=== PATIENT | female | born 1950 | race Caucasian/White ===

== ENCOUNTER → 2016-07-12 | Outpatient (CLI) | payer MEDICARE | END | disposition home or self-care (01) | LOC: US 02-19 11:00 | DX: I12.9 Hypertensive chronic kidney disease with stage 1 through stage 4 chronic kidney disease, or unspecified chronic kidney disease (principal); N18.3 Chronic kidney disease, stage 3 (moderate); E55.9 Vitamin D deficiency, unspecified; E21.1 Secondary hyperparathyroidism, not elsewhere classified; I73.9 Peripheral vascular disease, unspecified; G47.33 Obstructive sleep apnea (adult) (pediatric); N28.1 Cyst of kidney, acquired ==

== ENCOUNTER → 2016-08-02 | Outpatient (CLI) | payer MEDICARE ==
[2016-08-02 13:24] LABS: BASO % 0.4 % (0.0-1.0); EOS # 0.1 10*3/uL (0.0-0.4); EOS % 1.7 % (1.0-4.0); HEMATOCRIT 38.8 % (37.0-47.0); HEMOGLOBIN 11.9 g/dl (12.0-16.0); LYMPH # 1.5 10*3/uL (1.3-4.4); LYMPH % 22.1 % (27.0-41.0); MEAN CELL VOLUME 98.5 fl (81.0-99.0); MEAN CORPUSCULAR HGB 30.2 pg (27.0-31.0); MEAN CORPUSCULAR HGB CONC 30.7 g/dl (33.0-37.0); MEAN PLATELET VOLUME 10.5 fl (9.6-12.3); MONO # 0.4 10*3/uL (0.1-1.0); MONO % 5.8 % (3.0-9.0); NEUT # 4.8 10*3/uL (2.3-7.9); NEUT % 69.9 % (47.0-73.0); PLATELET COUNT AUTOMATED 211 10*3/uL (130-400); RED BLOOD COUNT 3.94 10*6/uL (4.10-5.10); RED CELL DISTRI WIDTH 15.8 % (0-14.5); WHITE BLOOD COUNT 6.9 10*3/uL (4.8-10.8)
[2016-08-02 13:52] LABS: ALBUMIN 3.1 gm/dl (3.1-4.5); POTASSIUM 3.7 mmol/L (3.5-5.1)
[2016-08-02 14:12] LABS: VITAMIN D, 25-HYDROXY 42.5 ng/mL (30-100)
[2016-08-02 14:13] LABS: FERRITIN 113.1 ng/mL (10.0-291.0)
== END | disposition home or self-care (01) ==
LOC: LAB 13:00
PROVIDERS: Internal Medicine Nephrology
DX: I12.9 Hypertensive chronic kidney disease with stage 1 through stage 4 chronic kidney disease, or unspecified chronic kidney disease (principal); N18.3 Chronic kidney disease, stage 3 (moderate); E55.9 Vitamin D deficiency, unspecified; E21.1 Secondary hyperparathyroidism, not elsewhere classified; I73.9 Peripheral vascular disease, unspecified; G47.33 Obstructive sleep apnea (adult) (pediatric); D63.1 Anemia in chronic kidney disease

== ENCOUNTER → 2017-02-01 | Outpatient (CLI) | payer MEDICARE ==
[2017-02-01 12:10] LABS: PHOSPHOROUS 3.6 mg/dL (2.5-4.9)
[2017-02-01 12:15] LABS: THYROID STIM HORMONE (HS) 2.66 uIU/ml (0.358-4.75)
== END | disposition home or self-care (01) ==
LOC: LAB 11:12
PROVIDERS: Internal Medicine Endocrinology, Diabetes & Metabolism
DX: E05.20 Thyrotoxicosis with toxic multinodular goiter without thyrotoxic crisis or storm (principal); E55.9 Vitamin D deficiency, unspecified; E21.1 Secondary hyperparathyroidism, not elsewhere classified

== ENCOUNTER → 2017-03-14 | Outpatient (CLI) | payer MEDICARE ==
[2017-03-14 13:54] LABS: URINE CREATININE RANDOM 47.5 mg/dL
[2017-03-14 14:02] LABS: BASO % 0.4 % (0.0-1.0); EOS # 0.2 10*3/uL (0.0-0.4); EOS % 2.2 % (1.0-4.0); HEMATOCRIT 38.5 % (37.0-47.0); LYMPH # 1.6 10*3/uL (1.3-4.4); LYMPH % 22.4 % (27.0-41.0); MEAN CELL VOLUME 94.6 fl (81.0-99.0); MEAN CORPUSCULAR HGB 29.5 pg (27.0-31.0); MEAN CORPUSCULAR HGB CONC 31.2 g/dl (33.0-37.0); MEAN PLATELET VOLUME 11.3 fl (9.6-12.3); MONO # 0.5 10*3/uL (0.1-1.0); MONO % 6.2 % (3.0-9.0); PLATELET COUNT AUTOMATED 194 10*3/uL (130-400); RED BLOOD COUNT 4.07 10*6/uL (4.10-5.10); RED CELL DISTRI WIDTH 16.3 % (0-14.5); RETICULOCYTE % 2.48 % (0.50-2.50); WHITE BLOOD COUNT 7.3 10*3/uL (4.8-10.8)
[2017-03-14 14:20] LABS: ALBUMIN 3.2 gm/dl (3.1-4.5); CREATININE 1.63 mg/dL (0.55-1.02); MAGNESIUM 1.8 mg/dL (1.5-2.1); PHOSPHOROUS 3.9 mg/dL (2.5-4.9); POTASSIUM 4.4 mmol/L (3.5-5.1); TOTAL PROTEIN 7.2 gm/dL (6.4-8.2)
[2017-03-14 14:53] LABS: FERRITIN 193.4 ng/mL (10.0-291.0); PTH INTACT 20.2 pg/mL (14.0-72.0); VITAMIN D, 25-HYDROXY 39.4 ng/mL (30-100)
== END | disposition home or self-care (01) ==
LOC: LAB 13:13
PROVIDERS: Internal Medicine Nephrology
DX: I12.9 Hypertensive chronic kidney disease with stage 1 through stage 4 chronic kidney disease, or unspecified chronic kidney disease (principal); N18.3 Chronic kidney disease, stage 3 (moderate); D63.1 Anemia in chronic kidney disease; E55.9 Vitamin D deficiency, unspecified; E21.1 Secondary hyperparathyroidism, not elsewhere classified; I73.9 Peripheral vascular disease, unspecified; G47.33 Obstructive sleep apnea (adult) (pediatric)

== ENCOUNTER → 2017-08-08 | Outpatient (CLI) | payer MEDICARE ==
[2017-08-08 11:57] LABS: CREATININE 1.51 mg/dL (0.55-1.02); PHOSPHOROUS 4.2 mg/dL (2.5-4.9); POTASSIUM 3.8 mmol/L (3.5-5.1)
[2017-08-08 12:04] LABS: THYROID STIM HORMONE (HS) 3.03 uIU/ml (0.358-4.75)
[2017-08-08 12:31] LABS: VITAMIN D, 25-HYDROXY 55.9 ng/mL (30-100)
== END | disposition home or self-care (01) ==
LOC: LAB 10:43
PROVIDERS: Internal Medicine Endocrinology, Diabetes & Metabolism
DX: E05.20 Thyrotoxicosis with toxic multinodular goiter without thyrotoxic crisis or storm (principal); E11.65 Type 2 diabetes mellitus with hyperglycemia; E21.1 Secondary hyperparathyroidism, not elsewhere classified; E55.9 Vitamin D deficiency, unspecified; E66.9 Obesity, unspecified

== ENCOUNTER → 2017-09-14 | Outpatient (CLI) | payer MEDICARE ==
[2017-09-14 13:21] LABS: BASO % 0.4 % (0.0-1.0); EOS # 0.1 10*3/uL (0.0-0.4); EOS % 1.6 % (1.0-4.0); HEMATOCRIT 39.6 % (37.0-47.0); HEMOGLOBIN 12.3 g/dl (12.0-16.0); LYMPH % 28.5 % (27.0-41.0); MEAN CELL VOLUME 97.8 fl (81.0-99.0); MEAN CORPUSCULAR HGB 30.4 pg (27.0-31.0); MEAN CORPUSCULAR HGB CONC 31.1 g/dl (33.0-37.0); MEAN PLATELET VOLUME 10.6 fl (9.6-12.3); MONO # 0.4 10*3/uL (0.1-1.0); MONO % 6.3 % (3.0-9.0); NEUT # 4.3 10*3/uL (2.3-7.9); NEUT % 62.9 % (47.0-73.0); PLATELET COUNT AUTOMATED 177 10*3/uL (130-400); RED BLOOD COUNT 4.05 10*6/uL (4.10-5.10); RED CELL DISTRI WIDTH 15.9 % (0-14.5); RETICULOCYTE % 1.82 % (0.50-2.50); WHITE BLOOD COUNT 6.9 10*3/uL (4.8-10.8)
[2017-09-14 13:50] LABS: ALBUMIN 3.5 gm/dl (3.1-4.5); CREATININE 1.49 mg/dL (0.55-1.02); PHOSPHOROUS 3.7 mg/dL (2.5-4.9); POTASSIUM 3.8 mmol/L (3.5-5.1); TOTAL PROTEIN 7.6 gm/dL (6.4-8.2)
[2017-09-14 14:12] LABS: FERRITIN 150.3 ng/mL (10.0-291.0); PTH INTACT 26.4 pg/mL (14.0-72.0)
== END | disposition home or self-care (01) ==
LOC: LAB 12:54
PROVIDERS: Internal Medicine Nephrology
DX: E05.20 Thyrotoxicosis with toxic multinodular goiter without thyrotoxic crisis or storm (principal); E55.9 Vitamin D deficiency, unspecified; E21.1 Secondary hyperparathyroidism, not elsewhere classified; I12.9 Hypertensive chronic kidney disease with stage 1 through stage 4 chronic kidney disease, or unspecified chronic kidney disease; N18.4 Chronic kidney disease, stage 4 (severe); I73.9 Peripheral vascular disease, unspecified; G47.33 Obstructive sleep apnea (adult) (pediatric)

== ENCOUNTER → 2017-11-09 | Outpatient (CLI) | payer MEDICARE ==
[2017-11-09 11:17] LABS: CREATININE 1.55 mg/dL (0.55-1.02); PHOSPHOROUS 4.1 mg/dL (2.5-4.9); POTASSIUM 3.3 mmol/L (3.5-5.1)
[2017-11-09 11:26] LABS: THYROID STIM HORMONE (HS) 1.99 uIU/ml (0.358-4.75)
[2017-11-09 12:24] LABS: VITAMIN D, 25-HYDROXY 49.9 ng/mL (30-100)
== END | disposition home or self-care (01) ==
LOC: LAB 10:03
PROVIDERS: Internal Medicine Endocrinology, Diabetes & Metabolism
DX: E05.20 Thyrotoxicosis with toxic multinodular goiter without thyrotoxic crisis or storm (principal); E55.9 Vitamin D deficiency, unspecified; E21.1 Secondary hyperparathyroidism, not elsewhere classified; E11.65 Type 2 diabetes mellitus with hyperglycemia; E66.9 Obesity, unspecified

== ENCOUNTER → 2018-01-17 | Outpatient (CLI) | payer MEDICARE ==
[2018-01-17 15:05] LABS: CREATININE 1.42 mg/dL (0.55-1.02)
[2018-01-17 15:12] LABS: THYROID STIM HORMONE (HS) 2.47 uIU/ml (0.358-4.75)
== END ==
LOC: LAB 14:04
PROVIDERS: Internal Medicine Endocrinology, Diabetes & Metabolism
DX: E05.20 Thyrotoxicosis with toxic multinodular goiter without thyrotoxic crisis or storm (principal); E55.9 Vitamin D deficiency, unspecified; E21.1 Secondary hyperparathyroidism, not elsewhere classified; E11.65 Type 2 diabetes mellitus with hyperglycemia; E66.9 Obesity, unspecified

== ENCOUNTER → 2018-04-24 | Outpatient (CLI) | payer MEDICARE ==
[2018-04-24 13:49] LABS: CREATININE 1.37 mg/dL (0.55-1.02)
[2018-04-24 13:54] LABS: THYROID STIM HORMONE (HS) 2.63 uIU/ml (0.358-4.75)
[2018-04-24 14:14] LABS: VITAMIN D, 25-HYDROXY 64.2 ng/mL (30-100)
== END | disposition home or self-care (01) ==
LOC: LAB 12:53
PROVIDERS: Internal Medicine Endocrinology, Diabetes & Metabolism
DX: E21.1 Secondary hyperparathyroidism, not elsewhere classified (principal); E05.20 Thyrotoxicosis with toxic multinodular goiter without thyrotoxic crisis or storm; E55.9 Vitamin D deficiency, unspecified; E11.65 Type 2 diabetes mellitus with hyperglycemia; E66.9 Obesity, unspecified

== ENCOUNTER → 2018-06-11 | Outpatient (CLI) | payer MEDICARE ==
[2018-06-11 09:40] LABS: BASO % 0.4 % (0.0-1.0); EOS # 0.2 10*3/uL (0.0-0.4); EOS % 2.2 % (1.0-4.0); HEMATOCRIT 42.5 % (37.0-47.0); HEMOGLOBIN 13.5 g/dl (12.0-16.0); LYMPH # 2.5 10*3/uL (1.3-4.4); LYMPH % 27.7 % (27.0-41.0); MEAN CELL VOLUME 99.5 fl (81.0-99.0); MEAN CORPUSCULAR HGB 31.6 pg (27.0-31.0); MEAN CORPUSCULAR HGB CONC 31.8 g/dl (33.0-37.0); MEAN PLATELET VOLUME 10.7 fl (9.6-12.3); MONO # 0.6 10*3/uL (0.1-1.0); MONO % 6.8 % (3.0-9.0); NEUT # 5.7 10*3/uL (2.3-7.9); NEUT % 62.6 % (47.0-73.0); PLATELET COUNT AUTOMATED 175 10*3/uL (130-400); RED BLOOD COUNT 4.27 10*6/uL (4.10-5.10); RED CELL DISTRI WIDTH 15.6 % (0-14.5); WHITE BLOOD COUNT 9.1 10*3/uL (4.8-10.8)
[2018-06-11 10:12] LABS: ALBUMIN 3.9 gm/dl (3.1-4.5); PHOSPHOROUS 3.9 mg/dL (2.5-4.9); POTASSIUM 3.4 mmol/L (3.5-5.1)
[2018-06-11 10:17] LABS: CREATININE 1.44 mg/dL (0.55-1.02); TOTAL PROTEIN 7.6 gm/dL (6.4-8.2)
== END | disposition home or self-care (01) ==
LOC: LAB 08:22
PROVIDERS: Internal Medicine Nephrology
DX: I12.9 Hypertensive chronic kidney disease with stage 1 through stage 4 chronic kidney disease, or unspecified chronic kidney disease (principal); E11.22 Type 2 diabetes mellitus with diabetic chronic kidney disease; N18.3 Chronic kidney disease, stage 3 (moderate); E55.9 Vitamin D deficiency, unspecified; E21.1 Secondary hyperparathyroidism, not elsewhere classified; I73.9 Peripheral vascular disease, unspecified; G47.33 Obstructive sleep apnea (adult) (pediatric)

== ENCOUNTER → 2018-07-27 | Outpatient (CLI) | payer MEDICARE ==
[~2018-07-27] MED LIST: AMARYL4 MG PO; CALCIUM 600 +1 EAC7 PO; CENTRUM SILVER1 EACH PO; CITALOPRAM40 MG PO; COLACE100 MG PO; CRESTOR10 M1 PO; DIGOXIN125 MCG PO; ELIQUIS5 M1 PO; FUROSEMIDE40 MG PO; IRON325 M1 PO; KLOR-CON 1010 ME1 PO; KLOR-CON M2020 ME1 PO; LASIX80 MG PO; METOPROLOL SUC100 M1 PO; SINGULAIR10 M1 PO; TAPAZOLE5 MG PO; TOPROL XL25 MG PO; TRULICITY0.75 MG/0. SC; TYLENOL325 M2 PO; VITAMIN D22000 UNIT PO; ZYLOPRIM300 MG PO
[2018-07-27 10:54] LABS: CREATININE 1.5 mg/dL (0.55-1.02); PHOSPHOROUS 3.2 mg/dL (2.5-4.9); POTASSIUM 3.6 mmol/L (3.5-5.1)
[2018-07-27 11:00] LABS: THYROID STIM HORMONE (HS) 2.33 uIU/ml (0.358-4.75)
[2018-07-27 11:47] LABS: PTH INTACT 47.4 pg/mL (18.5-88.0); VITAMIN D, 25-HYDROXY 61.9 ng/mL (30-100)
== END | disposition home or self-care (01) ==
LOC: LAB 09:06
PROVIDERS: Internal Medicine Endocrinology, Diabetes & Metabolism
DX: E11.65 Type 2 diabetes mellitus with hyperglycemia (principal); E55.9 Vitamin D deficiency, unspecified; E05.20 Thyrotoxicosis with toxic multinodular goiter without thyrotoxic crisis or storm; E21.1 Secondary hyperparathyroidism, not elsewhere classified; E78.5 Hyperlipidemia, unspecified; E66.9 Obesity, unspecified

== ENCOUNTER → 2018-10-22 | Outpatient (CLI) | payer MEDICARE | END | disposition home or self-care (01) | LOC: RESCLI 08:20 | DX: I12.9 Hypertensive chronic kidney disease with stage 1 through stage 4 chronic kidney disease, or unspecified chronic kidney disease (principal); E11.22 Type 2 diabetes mellitus with diabetic chronic kidney disease; E11.65 Type 2 diabetes mellitus with hyperglycemia; N18.3 Chronic kidney disease, stage 3 (moderate); M25.551 Pain in right hip; I87.2 Venous insufficiency (chronic) (peripheral); I48.2 Chronic atrial fibrillation; E05.90 Thyrotoxicosis, unspecified without thyrotoxic crisis or storm; L92.0 Granuloma annulare; G47.33 Obstructive sleep apnea (adult) (pediatric); E61.1 Iron deficiency; M10.9 Gout, unspecified; E55.9 Vitamin D deficiency, unspecified; E78.5 Hyperlipidemia, unspecified; F32.9 Major depressive disorder, single episode, unspecified; D86.9 Sarcoidosis, unspecified; J30.2 Other seasonal allergic rhinitis; K63.9 Disease of intestine, unspecified; Z79.4 Long term (current) use of insulin; Z76.89 Persons encountering health services in other specified circumstances; Z79.899 Other long term (current) drug therapy ==

== ENCOUNTER → 2018-12-31 | Outpatient (CLI) | payer MEDICARE | END | disposition home or self-care (01) | LOC: RESCLI 00:22 | DX: E78.5 Hyperlipidemia, unspecified (principal); E05.90 Thyrotoxicosis, unspecified without thyrotoxic crisis or storm; F32.9 Major depressive disorder, single episode, unspecified; E11.65 Type 2 diabetes mellitus with hyperglycemia; E55.9 Vitamin D deficiency, unspecified; E61.1 Iron deficiency; I48.2 Chronic atrial fibrillation; M10.9 Gout, unspecified; J30.2 Other seasonal allergic rhinitis; K63.9 Disease of intestine, unspecified; E11.22 Type 2 diabetes mellitus with diabetic chronic kidney disease; N18.4 Chronic kidney disease, stage 4 (severe); Z79.899 Other long term (current) drug therapy; Z88.8 Allergy status to other drugs, medicaments and biological substances ==

== ENCOUNTER → 2019-02-06 | Outpatient (CLI) | payer MEDICARE ==
[2019-02-06 10:58] LABS: PTH INTACT 46.2 pg/mL (18.5-88.0); VITAMIN D, 25-HYDROXY 64.8 ng/mL (30-100)
[2019-02-06 11:09] LABS: CREATININE 1.41 mg/dL (0.55-1.02); PHOSPHOROUS 4.2 mg/dL (2.5-4.9); THYROID STIM HORMONE (HS) 4.58 uIU/ml (0.358-4.75)
== END | disposition home or self-care (01) ==
LOC: LAB 09:43
PROVIDERS: Internal Medicine Endocrinology, Diabetes & Metabolism
DX: E05.20 Thyrotoxicosis with toxic multinodular goiter without thyrotoxic crisis or storm (principal); E55.9 Vitamin D deficiency, unspecified; E21.1 Secondary hyperparathyroidism, not elsewhere classified; E11.65 Type 2 diabetes mellitus with hyperglycemia; E66.9 Obesity, unspecified; E78.5 Hyperlipidemia, unspecified

== ENCOUNTER → 2019-03-04 | Outpatient (CLI) | payer MEDICARE | END | disposition home or self-care (01) | LOC: RESCLI 01:34 | DX: E05.90 Thyrotoxicosis, unspecified without thyrotoxic crisis or storm (principal); E78.5 Hyperlipidemia, unspecified; E11.65 Type 2 diabetes mellitus with hyperglycemia; E55.9 Vitamin D deficiency, unspecified; E61.1 Iron deficiency; M10.9 Gout, unspecified; J30.2 Other seasonal allergic rhinitis; I48.2 Chronic atrial fibrillation; F32.9 Major depressive disorder, single episode, unspecified; Z79.899 Other long term (current) drug therapy; Z88.8 Allergy status to other drugs, medicaments and biological substances ==

== ENCOUNTER → 2019-03-17 | Outpatient (CLI) | payer MEDICARE ==
[~2019-03-17] MED LIST changes: +METOPROLOL SUCC25 M2 PO; +POTASSIUM CHLO20 ME3 PO
[2019-03-17 13:15] LABS: CREATININE 1.25 mg/dL (0.55-1.02); PHOSPHOROUS 3.9 mg/dL (2.5-4.9); POTASSIUM 3.9 mmol/L (3.5-5.1)
== END | disposition home or self-care (01) ==
LOC: LAB 12:23
PROVIDERS: Internal Medicine Nephrology
DX: I12.9 Hypertensive chronic kidney disease with stage 1 through stage 4 chronic kidney disease, or unspecified chronic kidney disease (principal); E11.22 Type 2 diabetes mellitus with diabetic chronic kidney disease; N18.3 Chronic kidney disease, stage 3 (moderate); E55.9 Vitamin D deficiency, unspecified; E21.1 Secondary hyperparathyroidism, not elsewhere classified; I73.9 Peripheral vascular disease, unspecified; G47.33 Obstructive sleep apnea (adult) (pediatric)

== ENCOUNTER → 2019-05-08 | Day surgery (SDC) | payer MEDICARE ==
[~2019-05-08] VITALS: Ht 162.5 cm; Wt 95.7 kg
--- NOTE | ~2019-05-08 | PROC NOTE ---
[place], [place] PROCEDURE NOTE NAME: JENS ARAIZA UNIT #: [id number] ROOM: DOCTOR: HIEU SOTO MD BIRTHDATE: [birth year] DOS: 05/08/2019 ELECTIVE CARDIOVERSION PREPROCEDURE DIAGNOSIS: Persistent atrial fibrillation. PROCEDURES: Elective external cardioversion. PRIOR TEST: The patient is anticoagulated with Eliquis. DESCRIPTION OF PROCEDURE: Written informed consent was obtained, no GRISELDA was performed because the patient has been on adequate anticoagulation therapy without interruption. Self-adhesive anterior-posterior defibrillation pads were applied, the defibrillator was programmed to deliver energy in a synchronized fashion with EKG. The patient was set up for monitoring of surface EKG and pulse oximetry continuously. Blood pressure was monitored with automatic cuff measurements. Supplemental oxygen was administered. The procedures were performed under anesthesia by Anesthesiology Department. After ensuring adequate anesthesia, DC cardioversion was performed by delivering 200 joules of direct current in a synchronized fashion. RESULT: Successful cardioversion to normal sinus rhythm. Rhythm was confirmed on a rhythm strip. COMPLICATIONS: None. The patient was monitored until awake and vitals remained stable. Hieu Soto MD CM:PROCNOTE:PROCEDURE NOTE [id number] HIEU SOTO MD
[2019-05-08 09:52] VITALS: BP 119/47
[2019-05-08 10:55] VITALS: BP 88/45
[2019-05-08 11:09] VITALS: BP 96/52
[2019-05-08 11:23] VITALS: BP 107/57
[2019-05-08 11:25] VITALS: BP 102/60
== END | disposition home or self-care (01) ==
LOC: SDC 05-07 11:45
DX: I48.19 Other persistent atrial fibrillation (principal); I12.9 Hypertensive chronic kidney disease with stage 1 through stage 4 chronic kidney disease, or unspecified chronic kidney disease; N18.3 Chronic kidney disease, stage 3 (moderate); E11.22 Type 2 diabetes mellitus with diabetic chronic kidney disease; E78.5 Hyperlipidemia, unspecified; G47.30 Sleep apnea, unspecified; E66.9 Obesity, unspecified; Z68.36 Body mass index [BMI] 36.0-36.9, adult; Z98.890 Other specified postprocedural states; Z79.899 Other long term (current) drug therapy; Z88.8 Allergy status to other drugs, medicaments and biological substances; Z79.01 Long term (current) use of anticoagulants

== ENCOUNTER → 2019-05-14 | Outpatient (CLI) | payer MEDICARE | END | disposition home or self-care (01) | LOC: RESCLI 00:48 | DX: J30.2 Other seasonal allergic rhinitis (principal); E61.1 Iron deficiency; E05.90 Thyrotoxicosis, unspecified without thyrotoxic crisis or storm; E78.5 Hyperlipidemia, unspecified; E11.65 Type 2 diabetes mellitus with hyperglycemia; E55.9 Vitamin D deficiency, unspecified; I48.20 Chronic atrial fibrillation, unspecified; M10.9 Gout, unspecified; F32.9 Major depressive disorder, single episode, unspecified; E11.22 Type 2 diabetes mellitus with diabetic chronic kidney disease; N18.4 Chronic kidney disease, stage 4 (severe); Z88.8 Allergy status to other drugs, medicaments and biological substances; Z79.899 Other long term (current) drug therapy ==

== ENCOUNTER → 2019-05-19 | Outpatient (CLI) | payer MEDICARE ==
[2019-05-19 09:28] LABS: CREATININE 1.46 mg/dL (0.55-1.02)
[2019-05-19 09:36] LABS: THYROID STIM HORMONE (HS) 3.42 uIU/ml (0.358-4.75)
[2019-05-20 11:06] LABS: CREATININE,URINE 106.1 mg/dL (Not Estab.); MICRO ALBUMIN/CRE RATIO 35.7 (0.0-30.0)
== END | disposition home or self-care (01) ==
LOC: LAB 08:28
PROVIDERS: Internal Medicine Endocrinology, Diabetes & Metabolism; Internal Medicine Nephrology
DX: I48.20 Chronic atrial fibrillation, unspecified (principal); E11.65 Type 2 diabetes mellitus with hyperglycemia; E05.20 Thyrotoxicosis with toxic multinodular goiter without thyrotoxic crisis or storm; E55.9 Vitamin D deficiency, unspecified; E21.1 Secondary hyperparathyroidism, not elsewhere classified; E66.9 Obesity, unspecified; E78.9 Disorder of lipoprotein metabolism, unspecified

== ENCOUNTER → 2019-08-22 | Outpatient (CLI) | payer MEDICARE ==
[2019-08-22 12:21] LABS: CREATININE 1.43 mg/dL (0.55-1.02); PHOSPHOROUS 3.9 mg/dL (2.5-4.9); POTASSIUM 4.1 mmol/L (3.5-5.1)
[2019-08-22 12:27] LABS: THYROID STIM HORMONE (HS) 2.73 uIU/ml (0.358-4.75)
[2019-08-22 13:06] LABS: VITAMIN D, 25-HYDROXY 50.9 ng/mL (30-100)
[2019-08-22 13:07] LABS: PTH INTACT 44.3 pg/mL (18.5-88.0)
== END ==
LOC: LAB 11:13
PROVIDERS: Internal Medicine Endocrinology, Diabetes & Metabolism
DX: E11.65 Type 2 diabetes mellitus with hyperglycemia (principal); E05.20 Thyrotoxicosis with toxic multinodular goiter without thyrotoxic crisis or storm; E55.9 Vitamin D deficiency, unspecified; E21.1 Secondary hyperparathyroidism, not elsewhere classified; E66.9 Obesity, unspecified; E78.5 Hyperlipidemia, unspecified

== ENCOUNTER → 2019-08-26 | Outpatient (CLI) | payer MEDICARE | END | disposition home or self-care (01) | LOC: RESCLI 02:05 | DX: I48.20 Chronic atrial fibrillation, unspecified (principal); E11.22 Type 2 diabetes mellitus with diabetic chronic kidney disease; M10.9 Gout, unspecified; F32.9 Major depressive disorder, single episode, unspecified; J30.2 Other seasonal allergic rhinitis; E61.1 Iron deficiency; E05.90 Thyrotoxicosis, unspecified without thyrotoxic crisis or storm; E78.5 Hyperlipidemia, unspecified; E11.65 Type 2 diabetes mellitus with hyperglycemia; E55.9 Vitamin D deficiency, unspecified; N18.3 Chronic kidney disease, stage 3 (moderate); E66.9 Obesity, unspecified; Z79.899 Other long term (current) drug therapy ==

== ENCOUNTER → 2019-11-24 | Outpatient (CLI) | payer MEDICARE ==
[2019-11-24 14:30] LABS: CREATININE 1.34 mg/dL (0.55-1.02)
[2019-11-24 14:38] LABS: THYROID STIM HORMONE (HS) 2.07 uIU/ml (0.358-4.75); VITAMIN D, 25-HYDROXY 42.7 ng/mL (30-100)
== END | disposition home or self-care (01) ==
LOC: LAB 13:13
PROVIDERS: Internal Medicine Endocrinology, Diabetes & Metabolism
DX: E05.20 Thyrotoxicosis with toxic multinodular goiter without thyrotoxic crisis or storm (principal); E21.1 Secondary hyperparathyroidism, not elsewhere classified; E55.9 Vitamin D deficiency, unspecified; E11.65 Type 2 diabetes mellitus with hyperglycemia; E66.9 Obesity, unspecified; E78.5 Hyperlipidemia, unspecified

== ENCOUNTER → 2019-12-09 | Outpatient (CLI) | payer MEDICARE | LOC: RESCLI 00:40 | DX: E11.65 Type 2 diabetes mellitus with hyperglycemia (principal); E05.90 Thyrotoxicosis, unspecified without thyrotoxic crisis or storm; J30.2 Other seasonal allergic rhinitis; F32.9 Major depressive disorder, single episode, unspecified; M10.9 Gout, unspecified; E78.5 Hyperlipidemia, unspecified; I48.20 Chronic atrial fibrillation, unspecified ==

== ENCOUNTER → 2020-02-11 | Outpatient (CLI) | payer MEDICARE ==
[2020-02-11 14:43] LABS: CREATININE 1.89 mg/dL (0.55-1.02); POTASSIUM 4.5 mmol/L (3.5-5.1)
== END | disposition home or self-care (01) ==
LOC: LAB 13:44
PROVIDERS: Internal Medicine Nephrology
DX: I12.9 Hypertensive chronic kidney disease with stage 1 through stage 4 chronic kidney disease, or unspecified chronic kidney disease (principal); E11.22 Type 2 diabetes mellitus with diabetic chronic kidney disease; N18.3 Chronic kidney disease, stage 3 (moderate); E55.9 Vitamin D deficiency, unspecified; E21.1 Secondary hyperparathyroidism, not elsewhere classified; I73.9 Peripheral vascular disease, unspecified; G47.33 Obstructive sleep apnea (adult) (pediatric)

== ENCOUNTER → 2020-03-08 | Outpatient (CLI) | payer MEDICARE ==
[2020-03-08 12:34] LABS: CREATININE 2.12 mg/dL (0.55-1.02); POTASSIUM 4.2 mmol/L (3.5-5.1)
[2020-03-08 12:41] LABS: THYROID STIM HORMONE (HS) 2.11 uIU/ml (0.358-4.75)
[2020-03-08 13:05] LABS: VITAMIN D, 25-HYDROXY 38.9 ng/mL (30-100)
== END | disposition home or self-care (01) ==
LOC: LAB 11:32
PROVIDERS: ATTEND Internal Medicine Endocrinology, Diabetes & Metabolism
DX: E05.20 Thyrotoxicosis with toxic multinodular goiter without thyrotoxic crisis or storm (principal); E55.9 Vitamin D deficiency, unspecified; E21.1 Secondary hyperparathyroidism, not elsewhere classified; E11.65 Type 2 diabetes mellitus with hyperglycemia; E66.9 Obesity, unspecified; E78.5 Hyperlipidemia, unspecified

== ENCOUNTER → 2020-04-16 | Outpatient (CLI) | payer MEDICARE | END | disposition home or self-care (01) | LOC: RESCLI 04:40 | PROVIDERS: ATTEND Emergency Medicine | DX: E11.65 Type 2 diabetes mellitus with hyperglycemia (principal); I48.20 Chronic atrial fibrillation, unspecified; E78.5 Hyperlipidemia, unspecified; E61.1 Iron deficiency; E55.9 Vitamin D deficiency, unspecified; E05.90 Thyrotoxicosis, unspecified without thyrotoxic crisis or storm; M10.9 Gout, unspecified; J32.9 Chronic sinusitis, unspecified; J30.2 Other seasonal allergic rhinitis; E11.22 Type 2 diabetes mellitus with diabetic chronic kidney disease; N18.9 Chronic kidney disease, unspecified; Z12.31 Encounter for screening mammogram for malignant neoplasm of breast; Z79.899 Other long term (current) drug therapy; Z98.890 Other specified postprocedural states ==

== ENCOUNTER → 2020-05-03 | Outpatient (CLI) | payer MEDICARE | END | disposition home or self-care (01) | LOC: MAMMO 10:53 | PROVIDERS: ATTEND Internal Medicine Nephrology | DX: Z12.31 Encounter for screening mammogram for malignant neoplasm of breast (principal) ==

== ENCOUNTER → 2020-06-08 | Outpatient (CLI) | payer MEDICARE ==
[2020-06-08 12:19] LABS: CREATININE 2.23 mg/dL (0.55-1.02); POTASSIUM 3.9 mmol/L (3.5-5.1)
[2020-06-08 12:23] LABS: VITAMIN D, 25-HYDROXY 37.4 ng/mL (30-100)
[2020-06-08 12:26] LABS: THYROID STIM HORMONE (HS) 1.42 uIU/ml (0.358-4.75)
== END | disposition home or self-care (01) ==
LOC: LAB 11:07
PROVIDERS: ATTEND Internal Medicine Endocrinology, Diabetes & Metabolism
DX: E05.21 Thyrotoxicosis with toxic multinodular goiter with thyrotoxic crisis or storm (principal); E55.9 Vitamin D deficiency, unspecified; E21.1 Secondary hyperparathyroidism, not elsewhere classified; E11.65 Type 2 diabetes mellitus with hyperglycemia; E66.9 Obesity, unspecified; E78.5 Hyperlipidemia, unspecified

== ENCOUNTER → 2020-06-11 | Outpatient (CLI) | payer MEDICARE | END | disposition home or self-care (01) | LOC: COVID19 16:26 | PROVIDERS: ATTEND Internal Medicine | DX: U07.1 COVID-19 (principal) ==

== ENCOUNTER → 2020-07-30 | Outpatient (CLI) | payer MEDICARE | END | disposition home or self-care (01) | LOC: RESCLI 00:56 | PROVIDERS: ATTEND Internal Medicine | DX: E61.1 Iron deficiency (principal); E55.9 Vitamin D deficiency, unspecified; I48.20 Chronic atrial fibrillation, unspecified; E11.65 Type 2 diabetes mellitus with hyperglycemia; E78.5 Hyperlipidemia, unspecified; E05.90 Thyrotoxicosis, unspecified without thyrotoxic crisis or storm; M10.9 Gout, unspecified; J30.2 Other seasonal allergic rhinitis; F32.9 Major depressive disorder, single episode, unspecified; Z79.899 Other long term (current) drug therapy ==

== ENCOUNTER → 2020-09-09 | Outpatient (CLI) | payer MEDICARE ==
[2020-09-09 12:50] LABS: BASO % 0.5 % (0.0-1.0); EOS # 0.1 10*3/uL (0.0-0.4); EOS % 2.4 % (1.0-4.0); LYMPH # 1.7 10*3/uL (1.3-4.4); LYMPH % 31.8 % (27.0-41.0); MEAN CELL VOLUME 99.5 fl (81.0-99.0); MEAN CORPUSCULAR HGB 30.1 pg (27.0-31.0); MEAN CORPUSCULAR HGB CONC 30.2 g/dl (33.0-37.0); MEAN PLATELET VOLUME 10.9 fl (9.6-12.3); MONO # 0.4 10*3/uL (0.1-1.0); MONO % 7.1 % (3.0-9.0); NEUT # 3.2 10*3/uL (2.3-7.9); PLATELET COUNT AUTOMATED 163 10*3/uL (130-400); RED BLOOD COUNT 4.42 10*6/uL (4.10-5.10); RED CELL DISTRI WIDTH 16.8 % (0-14.5); WHITE BLOOD COUNT 5.5 10*3/uL (4.8-10.8)
[2020-09-09 12:56] LABS: URINE CREATININE RANDOM 71.4 mg/dL
[2020-09-09 13:17] LABS: ALBUMIN 3.7 gm/dl (3.1-4.5); CREATININE 1.48 mg/dL (0.55-1.02); TOTAL PROTEIN 7.4 gm/dL (6.4-8.2); URIC ACID 4.2 mg/dL (2.6-6.0)
== END | disposition home or self-care (01) ==
LOC: LAB 12:22
PROVIDERS: ATTEND Nurse Practitioner Family
DX: I12.9 Hypertensive chronic kidney disease with stage 1 through stage 4 chronic kidney disease, or unspecified chronic kidney disease (principal); N18.4 Chronic kidney disease, stage 4 (severe)

== ENCOUNTER → 2020-11-08 | Outpatient (CLI) | payer MEDICARE ==
[2020-11-08 10:50] LABS: CREATININE 1.93 mg/dL (0.55-1.02)
[2020-11-08 11:01] LABS: THYROID STIM HORMONE (HS) 2.51 uIU/ml (0.358-4.75)
== END | disposition home or self-care (01) ==
LOC: LAB 10:01
PROVIDERS: ATTEND Internal Medicine Endocrinology, Diabetes & Metabolism
DX: E11.65 Type 2 diabetes mellitus with hyperglycemia (principal); E55.9 Vitamin D deficiency, unspecified; E05.20 Thyrotoxicosis with toxic multinodular goiter without thyrotoxic crisis or storm; E21.1 Secondary hyperparathyroidism, not elsewhere classified; E78.5 Hyperlipidemia, unspecified; E66.9 Obesity, unspecified; E56.8 Deficiency of other vitamins

== ENCOUNTER → 2020-11-12 | Outpatient (CLI) | payer MEDICARE | END | disposition home or self-care (01) | LOC: RESCLI 01:42 | PROVIDERS: ATTEND Internal Medicine | DX: I48.20 Chronic atrial fibrillation, unspecified (principal); E78.5 Hyperlipidemia, unspecified; E05.90 Thyrotoxicosis, unspecified without thyrotoxic crisis or storm; F32.9 Major depressive disorder, single episode, unspecified; E11.65 Type 2 diabetes mellitus with hyperglycemia; J30.2 Other seasonal allergic rhinitis; M10.9 Gout, unspecified; Z79.899 Other long term (current) drug therapy; Z98.890 Other specified postprocedural states; Z90.49 Acquired absence of other specified parts of digestive tract ==

== ENCOUNTER → 2021-01-03 | Outpatient (CLI) | payer MEDICARE ==
[2021-01-03 14:11] LABS: BASO % 0.3 % (0.0-1.0); EOS # 0.1 10*3/uL (0.0-0.4); EOS % 2.2 % (1.0-4.0); HEMATOCRIT 39.2 % (37.0-47.0); LYMPH # 1.8 10*3/uL (1.3-4.4); LYMPH % 30.4 % (27.0-41.0); MEAN CELL VOLUME 97.8 fl (81.0-99.0); MEAN CORPUSCULAR HGB 30.7 pg (27.0-31.0); MEAN CORPUSCULAR HGB CONC 31.4 g/dl (33.0-37.0); MEAN PLATELET VOLUME 10.6 fl (9.6-12.3); MONO # 0.4 10*3/uL (0.1-1.0); MONO % 6.6 % (3.0-9.0); NEUT # 3.5 10*3/uL (2.3-7.9); NEUT % 60.2 % (47.0-73.0); PLATELET COUNT AUTOMATED 177 10*3/uL (130-400); RED BLOOD COUNT 4.01 10*6/uL (4.10-5.10); RED CELL DISTRI WIDTH 14.5 % (0-14.5); WHITE BLOOD COUNT 5.8 10*3/uL (4.8-10.8)
[2021-01-03 14:41] LABS: ALBUMIN 3.6 gm/dl (3.1-4.5); CREATININE 1.59 mg/dL (0.55-1.02); TOTAL PROTEIN 7.4 gm/dL (6.4-8.2); URIC ACID 4.8 mg/dL (2.6-6.0)
== END | disposition home or self-care (01) ==
LOC: LAB 13:47
PROVIDERS: ATTEND Internal Medicine Nephrology
DX: N18.32 Chronic kidney disease, stage 3b (principal); E87.1 Hypo-osmolality and hyponatremia

== ENCOUNTER → 2021-02-11 | Outpatient (CLI) | payer MEDICARE ==
[2021-02-11 13:04] LABS: CREATININE 1.95 mg/dL (0.55-1.02); POTASSIUM 3.9 mmol/L (3.5-5.1)
[2021-02-11 13:16] LABS: THYROID STIM HORMONE (HS) 2.41 uIU/ml (0.358-4.75)
[2021-02-11 14:02] LABS: VITAMIN D, 25-HYDROXY 22.2 ng/mL (30-100)
[2021-02-12 04:06] LABS: LDL CHOLESTEROL (DIRECT) 50 mg/dL (0-99)
== END | disposition home or self-care (01) ==
LOC: LAB 12:21
PROVIDERS: ATTEND Internal Medicine Endocrinology, Diabetes & Metabolism
DX: E11.65 Type 2 diabetes mellitus with hyperglycemia (principal); E05.20 Thyrotoxicosis with toxic multinodular goiter without thyrotoxic crisis or storm; E21.1 Secondary hyperparathyroidism, not elsewhere classified; E66.9 Obesity, unspecified; E78.5 Hyperlipidemia, unspecified; E55.9 Vitamin D deficiency, unspecified; E53.8 Deficiency of other specified B group vitamins

== ENCOUNTER → 2021-02-16 | Outpatient (CLI) | payer MEDICARE | END | disposition home or self-care (01) | LOC: RESCLI 00:39 | PROVIDERS: ATTEND Internal Medicine | DX: I12.9 Hypertensive chronic kidney disease with stage 1 through stage 4 chronic kidney disease, or unspecified chronic kidney disease (principal); E11.22 Type 2 diabetes mellitus with diabetic chronic kidney disease; N18.30 Chronic kidney disease, stage 3 unspecified; I48.20 Chronic atrial fibrillation, unspecified; M10.9 Gout, unspecified; F32.9 Major depressive disorder, single episode, unspecified; E05.90 Thyrotoxicosis, unspecified without thyrotoxic crisis or storm; E78.5 Hyperlipidemia, unspecified; E11.65 Type 2 diabetes mellitus with hyperglycemia; E55.9 Vitamin D deficiency, unspecified; E61.1 Iron deficiency; Z79.899 Other long term (current) drug therapy; Z98.890 Other specified postprocedural states; Z90.49 Acquired absence of other specified parts of digestive tract ==

== ENCOUNTER → 2021-05-12 | Outpatient (CLI) | payer MEDICARE ==
[~2021-05-12] MED LIST changes: +VIBRAMYCIN100 MG PO
[2021-05-12 12:46] LABS: BASO % 0.6 % (0.0-1.0); EOS # 0.2 10*3/uL (0.0-0.4); HEMATOCRIT 39.5 % (37.0-47.0); LYMPH # 1.8 10*3/uL (1.3-4.4); LYMPH % 29.4 % (27.0-41.0); MEAN CELL VOLUME 97.1 fl (81.0-99.0); MEAN CORPUSCULAR HGB 30.5 pg (27.0-31.0); MEAN CORPUSCULAR HGB CONC 31.4 g/dl (33.0-37.0); MEAN PLATELET VOLUME 10.1 fl (9.6-12.3); MONO # 0.4 10*3/uL (0.1-1.0); NEUT # 3.7 10*3/uL (2.3-7.9); NEUT % 59.5 % (47.0-73.0); PLATELET COUNT AUTOMATED 190 10*3/uL (130-400); RED BLOOD COUNT 4.07 10*6/uL (4.10-5.10); RED CELL DISTRI WIDTH 15.2 % (0-14.5); WHITE BLOOD COUNT 6.3 10*3/uL (4.8-10.8)
[2021-05-12 13:00] LABS: URIC ACID 4.8 mg/dL (2.6-6.0)
[2021-05-12 13:02] LABS: URINE CREATININE RANDOM 95.9 mg/dL
[2021-05-12 13:03] LABS: ALBUMIN 3.6 gm/dl (3.1-4.5); CREATININE 1.8 mg/dL (0.55-1.02); POTASSIUM 4.1 mmol/L (3.5-5.1); TOTAL PROTEIN 7.6 gm/dL (6.4-8.2)
[2021-05-12 13:58] LABS: VITAMIN D, 25-HYDROXY 43.1 ng/mL (30-100)
== END | disposition home or self-care (01) ==
LOC: LAB 12:11
PROVIDERS: Internal Medicine Nephrology; Student in an Organized Health Care Education/Training Program; ATTEND Internal Medicine Endocrinology, Diabetes & Metabolism
DX: I12.9 Hypertensive chronic kidney disease with stage 1 through stage 4 chronic kidney disease, or unspecified chronic kidney disease (principal); E11.65 Type 2 diabetes mellitus with hyperglycemia; E11.22 Type 2 diabetes mellitus with diabetic chronic kidney disease; N18.30 Chronic kidney disease, stage 3 unspecified; E78.5 Hyperlipidemia, unspecified; R80.9 Proteinuria, unspecified; E05.20 Thyrotoxicosis with toxic multinodular goiter without thyrotoxic crisis or storm; E21.1 Secondary hyperparathyroidism, not elsewhere classified; E66.9 Obesity, unspecified; E53.8 Deficiency of other specified B group vitamins; E55.9 Vitamin D deficiency, unspecified

== ENCOUNTER 2021-05-16 14:50 | Emergency (ER) | payer MEDICARE ==
[~2021-05-16] VITALS: Ht 165.1 cm; Wt 88.5 kg
[~2021-05-16 14:50] MED LIST changes: -VIBRAMYCIN100 MG PO
[2021-05-16 16:41] LABS: BASO % 0.3 % (0.0-1.0); EOS # 0.2 10*3/uL (0.0-0.4); EOS % 2.7 % (1.0-4.0); LYMPH # 1.8 10*3/uL (1.3-4.4); LYMPH % 29.6 % (27.0-41.0); MEAN CELL VOLUME 96.3 fl (81.0-99.0); MEAN CORPUSCULAR HGB 30.6 pg (27.0-31.0); MEAN CORPUSCULAR HGB CONC 31.8 g/dl (33.0-37.0); MEAN PLATELET VOLUME 10.2 fl (9.6-12.3); MONO # 0.4 10*3/uL (0.1-1.0); MONO % 7.1 % (3.0-9.0); NEUT # 3.7 10*3/uL (2.3-7.9); NEUT % 60.1 % (47.0-73.0); PLATELET COUNT AUTOMATED 195 10*3/uL (130-400); RED BLOOD COUNT 4.05 10*6/uL (4.10-5.10); RED CELL DISTRI WIDTH 15.2 % (0-14.5); WHITE BLOOD COUNT 6.2 10*3/uL (4.8-10.8)
[2021-05-16 16:57] LABS: ALBUMIN 3.3 gm/dl (3.1-4.5); CREATININE 1.85 mg/dL (0.55-1.02); POTASSIUM 3.9 mmol/L (3.5-5.1); TOTAL PROTEIN 7.4 gm/dL (6.4-8.2)
[2021-05-16] MEDS ORDERED: VIBRAMYCIN100 MG PO (18:35)
== END 2021-05-16 18:44 | disposition home or self-care (01) ==
LOC: ED 14:50
PROVIDERS: Physician Assistant
DX: I87.2 Venous insufficiency (chronic) (peripheral) (principal); E11.9 Type 2 diabetes mellitus without complications; Z88.2 Allergy status to sulfonamides; Z79.899 Other long term (current) drug therapy; Z90.49 Acquired absence of other specified parts of digestive tract; Z98.890 Other specified postprocedural states; Z98.61 Coronary angioplasty status

== ENCOUNTER → 2021-05-18 | Outpatient (CLI) | payer MEDICARE ==
[~2021-05-18] MED LIST changes: +VIBRAMYCIN100 MG PO
== END | disposition home or self-care (01) ==
LOC: RESCLI 10:17
PROVIDERS: ATTEND Internal Medicine
DX: I83.019 Varicose veins of right lower extremity with ulcer of unspecified site (principal); I12.9 Hypertensive chronic kidney disease with stage 1 through stage 4 chronic kidney disease, or unspecified chronic kidney disease; N18.30 Chronic kidney disease, stage 3 unspecified; I48.20 Chronic atrial fibrillation, unspecified; E05.90 Thyrotoxicosis, unspecified without thyrotoxic crisis or storm; E11.65 Type 2 diabetes mellitus with hyperglycemia; E55.9 Vitamin D deficiency, unspecified; E78.5 Hyperlipidemia, unspecified; F32.9 Major depressive disorder, single episode, unspecified; J30.2 Other seasonal allergic rhinitis; M10.9 Gout, unspecified; Z90.49 Acquired absence of other specified parts of digestive tract; Z98.890 Other specified postprocedural states; Z79.899 Other long term (current) drug therapy

== ENCOUNTER → 2021-05-25 | Outpatient (CLI) | payer MEDICARE | END | disposition home or self-care (01) | LOC: US 00:49 | PROVIDERS: ATTEND Internal Medicine Nephrology | DX: E11.622 Type 2 diabetes mellitus with other skin ulcer (principal); L97.812 Non-pressure chronic ulcer of other part of right lower leg with fat layer exposed; E11.51 Type 2 diabetes mellitus with diabetic peripheral angiopathy without gangrene; I48.91 Unspecified atrial fibrillation; G47.30 Sleep apnea, unspecified; N28.9 Disorder of kidney and ureter, unspecified; Z85.038 Personal history of other malignant neoplasm of large intestine; Z79.84 Long term (current) use of oral hypoglycemic drugs; Z79.899 Other long term (current) drug therapy; Z79.01 Long term (current) use of anticoagulants; Z90.49 Acquired absence of other specified parts of digestive tract; Z98.890 Other specified postprocedural states; I70.25 Atherosclerosis of native arteries of other extremities with ulceration; I73.9 Peripheral vascular disease, unspecified ==

== ENCOUNTER → 2021-06-01 | Outpatient (CLI) | payer MEDICARE | LOC: WOUNDCARE 00:27 | PROVIDERS: ATTEND Nurse Practitioner Family | DX: E11.622 Type 2 diabetes mellitus with other skin ulcer (principal); L97.812 Non-pressure chronic ulcer of other part of right lower leg with fat layer exposed; I48.91 Unspecified atrial fibrillation; G47.30 Sleep apnea, unspecified; N28.9 Disorder of kidney and ureter, unspecified; Z85.038 Personal history of other malignant neoplasm of large intestine ==

== ENCOUNTER → 2021-06-08 | Outpatient (CLI) | payer MEDICARE | LOC: WOUNDCARE 03:21 | PROVIDERS: ATTEND Nurse Practitioner Family | DX: E11.622 Type 2 diabetes mellitus with other skin ulcer (principal); L97.812 Non-pressure chronic ulcer of other part of right lower leg with fat layer exposed; I48.91 Unspecified atrial fibrillation; G47.30 Sleep apnea, unspecified; N28.9 Disorder of kidney and ureter, unspecified; Z85.038 Personal history of other malignant neoplasm of large intestine ==

== ENCOUNTER → 2021-06-15 | Outpatient (CLI) | payer MEDICARE | LOC: WOUNDCARE 01:05 | PROVIDERS: ATTEND Nurse Practitioner Family | DX: E11.622 Type 2 diabetes mellitus with other skin ulcer (principal); L97.812 Non-pressure chronic ulcer of other part of right lower leg with fat layer exposed; I48.91 Unspecified atrial fibrillation; G47.30 Sleep apnea, unspecified; N28.9 Disorder of kidney and ureter, unspecified; Z85.038 Personal history of other malignant neoplasm of large intestine ==

== ENCOUNTER → 2021-06-22 | Outpatient (CLI) | payer MEDICARE | LOC: WOUNDCARE 00:16 | PROVIDERS: ATTEND Nurse Practitioner Family | DX: E11.622 Type 2 diabetes mellitus with other skin ulcer (principal); L97.812 Non-pressure chronic ulcer of other part of right lower leg with fat layer exposed; I48.91 Unspecified atrial fibrillation; G47.30 Sleep apnea, unspecified; N28.9 Disorder of kidney and ureter, unspecified; Z85.038 Personal history of other malignant neoplasm of large intestine ==

== ENCOUNTER → 2021-06-27 | Outpatient (CLI) | payer MEDICARE | LOC: WOUNDCARE 01:06 | PROVIDERS: ATTEND Nurse Practitioner Family | DX: E11.622 Type 2 diabetes mellitus with other skin ulcer (principal); L97.812 Non-pressure chronic ulcer of other part of right lower leg with fat layer exposed; I48.91 Unspecified atrial fibrillation; G47.30 Sleep apnea, unspecified; N28.9 Disorder of kidney and ureter, unspecified; Z85.038 Personal history of other malignant neoplasm of large intestine ==

== ENCOUNTER → 2021-07-06 | Outpatient (CLI) | payer MEDICARE ==
[2021-07-06 10:20] LABS: BASO % 0.5 % (0.0-1.0); EOS # 0.1 10*3/uL (0.0-0.4); EOS % 2.2 % (1.0-4.0); HEMATOCRIT 41.6 % (37.0-47.0); LYMPH # 1.7 10*3/uL (1.3-4.4); LYMPH % 27.9 % (27.0-41.0); MEAN CELL VOLUME 97.4 fl (81.0-99.0); MEAN CORPUSCULAR HGB 30.7 pg (27.0-31.0); MEAN CORPUSCULAR HGB CONC 31.5 g/dl (33.0-37.0); MEAN PLATELET VOLUME 10.6 fl (9.6-12.3); MONO # 0.5 10*3/uL (0.1-1.0); MONO % 7.2 % (3.0-9.0); NEUT # 3.8 10*3/uL (2.3-7.9); NEUT % 61.7 % (47.0-73.0); PLATELET COUNT AUTOMATED 174 10*3/uL (130-400); RED BLOOD COUNT 4.27 10*6/uL (4.10-5.10); RED CELL DISTRI WIDTH 15.3 % (0-14.5); WHITE BLOOD COUNT 6.2 10*3/uL (4.8-10.8)
[2021-07-06 10:29] LABS: URINE CREATININE RANDOM 41.1 mg/dL
[2021-07-06 10:38] LABS: ALBUMIN 3.6 gm/dl (3.1-4.5); CREATININE 1.65 mg/dL (0.55-1.02); POTASSIUM 3.9 mmol/L (3.5-5.1); TOTAL PROTEIN 7.9 gm/dL (6.4-8.2); URIC ACID 4.5 mg/dL (2.6-6.0)
[2021-07-07 08:07] LABS: CREATININE,URINE 37.8 mg/dL (Not Estab.)
== END | disposition home or self-care (01) ==
LOC: LAB 01:23 → WOUNDCARE 01:23
PROVIDERS: Nurse Practitioner Acute Care; ATTEND Nurse Practitioner Family
DX: E11.622 Type 2 diabetes mellitus with other skin ulcer (principal); L97.812 Non-pressure chronic ulcer of other part of right lower leg with fat layer exposed; G47.30 Sleep apnea, unspecified; I48.91 Unspecified atrial fibrillation; Z90.49 Acquired absence of other specified parts of digestive tract; Z85.038 Personal history of other malignant neoplasm of large intestine

== ENCOUNTER → 2021-07-11 | Outpatient (CLI) | payer MEDICARE | LOC: WOUNDCARE 02:41 | PROVIDERS: ATTEND Nurse Practitioner Family | DX: E11.622 Type 2 diabetes mellitus with other skin ulcer (principal); L97.812 Non-pressure chronic ulcer of other part of right lower leg with fat layer exposed; I48.91 Unspecified atrial fibrillation; G47.30 Sleep apnea, unspecified; N28.9 Disorder of kidney and ureter, unspecified; Z85.038 Personal history of other malignant neoplasm of large intestine ==

== ENCOUNTER → 2021-07-13 | Outpatient (CLI) | payer MEDICARE | END | disposition home or self-care (01) | LOC: RESCLI 00:44 | PROVIDERS: ATTEND Emergency Medicine | DX: I48.20 Chronic atrial fibrillation, unspecified (principal); I10 Essential (primary) hypertension; E78.5 Hyperlipidemia, unspecified; M10.9 Gout, unspecified; E55.9 Vitamin D deficiency, unspecified; R93.7 Abnormal findings on diagnostic imaging of other parts of musculoskeletal system; Z79.899 Other long term (current) drug therapy ==

== ENCOUNTER → 2021-07-18 | Outpatient (CLI) | payer MEDICARE | LOC: WOUNDCARE 01:35 | PROVIDERS: ATTEND Nurse Practitioner Family | DX: E11.622 Type 2 diabetes mellitus with other skin ulcer (principal); L97.812 Non-pressure chronic ulcer of other part of right lower leg with fat layer exposed; I48.91 Unspecified atrial fibrillation; G47.30 Sleep apnea, unspecified; N28.9 Disorder of kidney and ureter, unspecified; Z85.038 Personal history of other malignant neoplasm of large intestine ==

== ENCOUNTER → 2021-07-26 | Outpatient (CLI) | payer MEDICARE | END | disposition home or self-care (01) | LOC: WOUNDCARE 09:08 | PROVIDERS: ATTEND Nurse Practitioner Family | DX: E11.622 Type 2 diabetes mellitus with other skin ulcer (principal); L97.812 Non-pressure chronic ulcer of other part of right lower leg with fat layer exposed; I48.91 Unspecified atrial fibrillation; G47.30 Sleep apnea, unspecified; N28.9 Disorder of kidney and ureter, unspecified; Z85.038 Personal history of other malignant neoplasm of large intestine ==

== ENCOUNTER → 2021-08-01 | Outpatient (CLI) | payer MEDICARE | LOC: WOUNDCARE 02:28 | PROVIDERS: ATTEND Nurse Practitioner Family | DX: E11.622 Type 2 diabetes mellitus with other skin ulcer (principal); L97.812 Non-pressure chronic ulcer of other part of right lower leg with fat layer exposed; I48.91 Unspecified atrial fibrillation; G47.30 Sleep apnea, unspecified; N28.9 Disorder of kidney and ureter, unspecified; Z85.038 Personal history of other malignant neoplasm of large intestine ==

== ENCOUNTER 2021-08-07 11:45 | Emergency (ER) | payer MEDICARE ==
[~2021-08-07] VITALS: Ht 167.6 cm; Wt 72.6 kg
[2021-08-07] MEDS ORDERED: VOLTAREN ARTHRI20 GM T (13:28)
== END 2021-08-07 13:33 | disposition home or self-care (01) ==
LOC: ED 11:45
DX: S80.02XA Contusion of left knee, initial encounter (principal); I48.91 Unspecified atrial fibrillation; E78.5 Hyperlipidemia, unspecified; E66.1 Drug-induced obesity; I12.9 Hypertensive chronic kidney disease with stage 1 through stage 4 chronic kidney disease, or unspecified chronic kidney disease; E11.22 Type 2 diabetes mellitus with diabetic chronic kidney disease; N18.9 Chronic kidney disease, unspecified; M10.9 Gout, unspecified; Z88.2 Allergy status to sulfonamides; Z79.899 Other long term (current) drug therapy; Z90.49 Acquired absence of other specified parts of digestive tract; Z98.890 Other specified postprocedural states; W18.39XA Other fall on same level, initial encounter; Y93.89 Activity, other specified; Y92.89 Other specified places as the place of occurrence of the external cause; Y99.8 Other external cause status

== ENCOUNTER → 2021-08-08 | Outpatient (CLI) | payer MEDICARE ==
[~2021-08-08] MED LIST changes: +VOLTAREN ARTHRI20 GM T
== END ==
LOC: WOUNDCARE 01:01
PROVIDERS: ATTEND Nurse Practitioner Family
DX: E11.622 Type 2 diabetes mellitus with other skin ulcer (principal); L97.812 Non-pressure chronic ulcer of other part of right lower leg with fat layer exposed; I48.91 Unspecified atrial fibrillation; G47.30 Sleep apnea, unspecified; N28.9 Disorder of kidney and ureter, unspecified; Z85.038 Personal history of other malignant neoplasm of large intestine

== ENCOUNTER → 2021-08-18 | Outpatient (CLI) | payer MEDICARE | LOC: WOUNDCARE 01:45 | PROVIDERS: ATTEND Nurse Practitioner Family | DX: T86.828 Other complications of skin graft (allograft) (autograft) (principal); E11.622 Type 2 diabetes mellitus with other skin ulcer; L97.812 Non-pressure chronic ulcer of other part of right lower leg with fat layer exposed; I48.91 Unspecified atrial fibrillation; G47.30 Sleep apnea, unspecified; N28.9 Disorder of kidney and ureter, unspecified; Z85.038 Personal history of other malignant neoplasm of large intestine; Y83.2 Surgical operation with anastomosis, bypass or graft as the cause of abnormal reaction of the patient, or of later complication, without mention of misadventure at the time of the procedure ==

== ENCOUNTER → 2021-08-22 | Outpatient (CLI) | payer MEDICARE ==
[2021-08-22 12:02] LABS: CREATININE 1.61 mg/dL (0.55-1.02); THYROID STIM HORMONE (HS) 2.51 uIU/ml (0.358-4.75)
== END | disposition home or self-care (01) ==
LOC: WOUNDCARE 01:38 → LAB 01:38 → WOUNDCARE 07:49
PROVIDERS: Internal Medicine Endocrinology, Diabetes & Metabolism; ATTEND Nurse Practitioner Family
DX: E11.622 Type 2 diabetes mellitus with other skin ulcer (principal); L97.818 Non-pressure chronic ulcer of other part of right lower leg with other specified severity; E11.65 Type 2 diabetes mellitus with hyperglycemia; E05.20 Thyrotoxicosis with toxic multinodular goiter without thyrotoxic crisis or storm; E21.1 Secondary hyperparathyroidism, not elsewhere classified; E66.9 Obesity, unspecified; E78.5 Hyperlipidemia, unspecified; E53.8 Deficiency of other specified B group vitamins; E55.9 Vitamin D deficiency, unspecified

== ENCOUNTER → 2021-08-29 | Outpatient (CLI) | payer MEDICARE | LOC: WOUNDCARE 00:59 | PROVIDERS: ATTEND Nurse Practitioner Family | DX: E11.622 Type 2 diabetes mellitus with other skin ulcer (principal); L97.812 Non-pressure chronic ulcer of other part of right lower leg with fat layer exposed; I48.91 Unspecified atrial fibrillation; G47.30 Sleep apnea, unspecified; N28.9 Disorder of kidney and ureter, unspecified; Z85.038 Personal history of other malignant neoplasm of large intestine ==

== ENCOUNTER → 2021-09-05 | Outpatient (CLI) | payer MEDICARE | LOC: WOUNDCARE 09:12 | PROVIDERS: ATTEND Nurse Practitioner Family | DX: E11.622 Type 2 diabetes mellitus with other skin ulcer (principal); L97.812 Non-pressure chronic ulcer of other part of right lower leg with fat layer exposed; I87.8 Other specified disorders of veins; I48.91 Unspecified atrial fibrillation; G47.30 Sleep apnea, unspecified; N28.9 Disorder of kidney and ureter, unspecified; Z85.038 Personal history of other malignant neoplasm of large intestine ==

== ENCOUNTER → 2021-09-12 | Outpatient (CLI) | payer MEDICARE | LOC: WOUNDCARE 00:58 | PROVIDERS: ATTEND Nurse Practitioner Family | DX: E11.622 Type 2 diabetes mellitus with other skin ulcer (principal); L97.812 Non-pressure chronic ulcer of other part of right lower leg with fat layer exposed; L97.312 Non-pressure chronic ulcer of right ankle with fat layer exposed; I87.8 Other specified disorders of veins; I48.91 Unspecified atrial fibrillation; G47.30 Sleep apnea, unspecified; N28.9 Disorder of kidney and ureter, unspecified; Z85.038 Personal history of other malignant neoplasm of large intestine ==

== ENCOUNTER → 2021-09-15 | Outpatient (CLI) | payer MEDICARE | LOC: WOUNDCARE 01:27 | PROVIDERS: ATTEND Nurse Practitioner Family | DX: E11.622 Type 2 diabetes mellitus with other skin ulcer (principal); L97.812 Non-pressure chronic ulcer of other part of right lower leg with fat layer exposed; I87.8 Other specified disorders of veins; I48.91 Unspecified atrial fibrillation; G47.30 Sleep apnea, unspecified; N28.9 Disorder of kidney and ureter, unspecified; Z85.038 Personal history of other malignant neoplasm of large intestine ==

== ENCOUNTER → 2021-09-19 | Outpatient (CLI) | payer MEDICARE | LOC: WOUNDCARE 00:38 | PROVIDERS: ATTEND Nurse Practitioner Family | DX: E11.622 Type 2 diabetes mellitus with other skin ulcer (principal); L97.812 Non-pressure chronic ulcer of other part of right lower leg with fat layer exposed; L97.312 Non-pressure chronic ulcer of right ankle with fat layer exposed; I87.8 Other specified disorders of veins; I48.91 Unspecified atrial fibrillation; G47.30 Sleep apnea, unspecified; N28.9 Disorder of kidney and ureter, unspecified; Z85.038 Personal history of other malignant neoplasm of large intestine ==

== ENCOUNTER → 2021-09-26 | Outpatient (CLI) | payer MEDICARE | LOC: WOUNDCARE 00:17 | PROVIDERS: ATTEND Nurse Practitioner Family | DX: E11.622 Type 2 diabetes mellitus with other skin ulcer (principal); L97.812 Non-pressure chronic ulcer of other part of right lower leg with fat layer exposed; L97.312 Non-pressure chronic ulcer of right ankle with fat layer exposed; I87.8 Other specified disorders of veins; I48.91 Unspecified atrial fibrillation; G47.30 Sleep apnea, unspecified; N28.9 Disorder of kidney and ureter, unspecified; Z85.038 Personal history of other malignant neoplasm of large intestine ==

== ENCOUNTER → 2021-10-03 | Outpatient (CLI) | payer MEDICARE | LOC: WOUNDCARE 00:50 | PROVIDERS: ATTEND Nurse Practitioner Family | DX: E11.622 Type 2 diabetes mellitus with other skin ulcer (principal); L97.812 Non-pressure chronic ulcer of other part of right lower leg with fat layer exposed; L97.312 Non-pressure chronic ulcer of right ankle with fat layer exposed; I87.8 Other specified disorders of veins; I48.91 Unspecified atrial fibrillation; G47.30 Sleep apnea, unspecified; N28.9 Disorder of kidney and ureter, unspecified; Z85.038 Personal history of other malignant neoplasm of large intestine ==

== ENCOUNTER → 2021-10-10 | Outpatient (CLI) | payer MEDICARE | END | disposition home or self-care (01) | LOC: WOUNDCARE 00:55 | PROVIDERS: ATTEND Nurse Practitioner Family | DX: E11.622 Type 2 diabetes mellitus with other skin ulcer (principal); L97.812 Non-pressure chronic ulcer of other part of right lower leg with fat layer exposed; L97.312 Non-pressure chronic ulcer of right ankle with fat layer exposed; I87.8 Other specified disorders of veins; I48.91 Unspecified atrial fibrillation; G47.30 Sleep apnea, unspecified; N28.9 Disorder of kidney and ureter, unspecified; Z85.038 Personal history of other malignant neoplasm of large intestine ==

== ENCOUNTER → 2021-10-13 | Outpatient (CLI) | payer MEDICARE | END | disposition home or self-care (01) | LOC: WOUNDCARE 02:17 | PROVIDERS: ATTEND Nurse Practitioner Family | DX: E11.622 Type 2 diabetes mellitus with other skin ulcer (principal); L97.812 Non-pressure chronic ulcer of other part of right lower leg with fat layer exposed; L97.312 Non-pressure chronic ulcer of right ankle with fat layer exposed; G47.30 Sleep apnea, unspecified; I48.91 Unspecified atrial fibrillation; Z90.49 Acquired absence of other specified parts of digestive tract; Z85.038 Personal history of other malignant neoplasm of large intestine ==

== ENCOUNTER → 2021-10-17 | Outpatient (CLI) | payer MEDICARE | END | disposition home or self-care (01) | LOC: WOUNDCARE 00:40 | PROVIDERS: ATTEND Nurse Practitioner Family | DX: E11.622 Type 2 diabetes mellitus with other skin ulcer (principal); L97.812 Non-pressure chronic ulcer of other part of right lower leg with fat layer exposed; L97.312 Non-pressure chronic ulcer of right ankle with fat layer exposed; I48.91 Unspecified atrial fibrillation; G47.30 Sleep apnea, unspecified; Z90.49 Acquired absence of other specified parts of digestive tract; Z85.038 Personal history of other malignant neoplasm of large intestine ==

== ENCOUNTER → 2021-10-24 | Outpatient (CLI) | payer MEDICARE | END | disposition home or self-care (01) | LOC: WOUNDCARE 01:32 | PROVIDERS: ATTEND Nurse Practitioner Family | DX: E11.622 Type 2 diabetes mellitus with other skin ulcer (principal); L97.812 Non-pressure chronic ulcer of other part of right lower leg with fat layer exposed; L97.312 Non-pressure chronic ulcer of right ankle with fat layer exposed; I48.91 Unspecified atrial fibrillation; G47.30 Sleep apnea, unspecified; Z90.49 Acquired absence of other specified parts of digestive tract; Z85.038 Personal history of other malignant neoplasm of large intestine ==

== ENCOUNTER → 2021-10-31 | Outpatient (CLI) | payer MEDICARE | END | disposition home or self-care (01) | LOC: WOUNDCARE 00:43 | PROVIDERS: ATTEND Nurse Practitioner Family | DX: E11.622 Type 2 diabetes mellitus with other skin ulcer (principal); L97.812 Non-pressure chronic ulcer of other part of right lower leg with fat layer exposed; L97.312 Non-pressure chronic ulcer of right ankle with fat layer exposed; I48.91 Unspecified atrial fibrillation; G47.30 Sleep apnea, unspecified; Z90.49 Acquired absence of other specified parts of digestive tract; Z85.038 Personal history of other malignant neoplasm of large intestine ==

== ENCOUNTER → 2021-11-07 | Outpatient (CLI) | payer MEDICARE | END | disposition home or self-care (01) | LOC: WOUNDCARE 02:49 | PROVIDERS: ATTEND Nurse Practitioner Family | DX: E11.622 Type 2 diabetes mellitus with other skin ulcer (principal); L97.812 Non-pressure chronic ulcer of other part of right lower leg with fat layer exposed; I48.91 Unspecified atrial fibrillation; G47.30 Sleep apnea, unspecified; Z90.49 Acquired absence of other specified parts of digestive tract; Z85.038 Personal history of other malignant neoplasm of large intestine ==

== ENCOUNTER → 2021-11-10 | Outpatient (CLI) | payer MEDICARE | END | disposition home or self-care (01) | LOC: WOUNDCARE 00:17 | PROVIDERS: ATTEND Nurse Practitioner Family | DX: E11.622 Type 2 diabetes mellitus with other skin ulcer (principal); L97.812 Non-pressure chronic ulcer of other part of right lower leg with fat layer exposed; G47.30 Sleep apnea, unspecified; I48.91 Unspecified atrial fibrillation; Z90.49 Acquired absence of other specified parts of digestive tract; Z85.038 Personal history of other malignant neoplasm of large intestine ==

== ENCOUNTER → 2021-11-14 | Outpatient (CLI) | payer MEDICARE | END | disposition home or self-care (01) | LOC: WOUNDCARE 02:22 | PROVIDERS: ATTEND Nurse Practitioner Family | DX: E11.622 Type 2 diabetes mellitus with other skin ulcer (principal); L97.812 Non-pressure chronic ulcer of other part of right lower leg with fat layer exposed; I48.91 Unspecified atrial fibrillation; G47.30 Sleep apnea, unspecified; Z90.49 Acquired absence of other specified parts of digestive tract; Z85.038 Personal history of other malignant neoplasm of large intestine ==

== ENCOUNTER → 2021-11-22 | Outpatient (CLI) | payer MEDICARE ==
[2021-11-22 09:30] LABS: CREATININE 1.64 mg/dL (0.55-1.02)
[2021-11-22 09:36] LABS: THYROID STIM HORMONE (HS) 2.51 uIU/ml (0.358-4.75)
[2021-11-22 10:37] LABS: VITAMIN D, 25-HYDROXY 33.6 ng/mL (30-100)
== END | disposition home or self-care (01) ==
LOC: LAB 08:46
PROVIDERS: ATTEND Internal Medicine Endocrinology, Diabetes & Metabolism
DX: E11.65 Type 2 diabetes mellitus with hyperglycemia (principal); E66.9 Obesity, unspecified; E78.5 Hyperlipidemia, unspecified; E53.8 Deficiency of other specified B group vitamins; E55.9 Vitamin D deficiency, unspecified; E05.20 Thyrotoxicosis with toxic multinodular goiter without thyrotoxic crisis or storm; E21.1 Secondary hyperparathyroidism, not elsewhere classified

== ENCOUNTER → 2021-11-23 | Outpatient (CLI) | payer MEDICARE | LOC: WOUNDCARE 00:45 | PROVIDERS: ATTEND Nurse Practitioner Family | DX: E11.622 Type 2 diabetes mellitus with other skin ulcer (principal); L97.812 Non-pressure chronic ulcer of other part of right lower leg with fat layer exposed; I48.91 Unspecified atrial fibrillation; G47.30 Sleep apnea, unspecified; Z90.49 Acquired absence of other specified parts of digestive tract; Z85.038 Personal history of other malignant neoplasm of large intestine ==

== ENCOUNTER → 2021-12-07 | Outpatient (CLI) | payer MEDICARE | END | disposition home or self-care (01) | LOC: WOUNDCARE 01:45 | PROVIDERS: ATTEND Nurse Practitioner Family | DX: E11.622 Type 2 diabetes mellitus with other skin ulcer (principal); L97.812 Non-pressure chronic ulcer of other part of right lower leg with fat layer exposed; I48.91 Unspecified atrial fibrillation; G47.30 Sleep apnea, unspecified; Z90.49 Acquired absence of other specified parts of digestive tract; Z85.038 Personal history of other malignant neoplasm of large intestine ==

== ENCOUNTER → 2021-12-21 | Outpatient (CLI) | payer MEDICARE | END | disposition home or self-care (01) | LOC: WOUNDCARE 01:34 | PROVIDERS: ATTEND Nurse Practitioner Family | DX: E11.622 Type 2 diabetes mellitus with other skin ulcer (principal); L97.812 Non-pressure chronic ulcer of other part of right lower leg with fat layer exposed; G47.30 Sleep apnea, unspecified; I48.91 Unspecified atrial fibrillation; Z90.49 Acquired absence of other specified parts of digestive tract; Z85.038 Personal history of other malignant neoplasm of large intestine ==

== ENCOUNTER → 2022-01-04 | Outpatient (CLI) | payer MEDICARE | END | disposition home or self-care (01) | LOC: WOUNDCARE 02:33 | PROVIDERS: ATTEND Nurse Practitioner Family | DX: E11.622 Type 2 diabetes mellitus with other skin ulcer (principal); L97.812 Non-pressure chronic ulcer of other part of right lower leg with fat layer exposed; I48.91 Unspecified atrial fibrillation; G47.30 Sleep apnea, unspecified; Z90.49 Acquired absence of other specified parts of digestive tract; Z85.038 Personal history of other malignant neoplasm of large intestine ==

== ENCOUNTER → 2022-01-10 | Outpatient (CLI) | payer MEDICARE | END | disposition home or self-care (01) | LOC: RESCLI 14:41 | PROVIDERS: ATTEND Internal Medicine | DX: I12.9 Hypertensive chronic kidney disease with stage 1 through stage 4 chronic kidney disease, or unspecified chronic kidney disease (principal); E11.22 Type 2 diabetes mellitus with diabetic chronic kidney disease; N18.30 Chronic kidney disease, stage 3 unspecified; R19.00 Intra-abdominal and pelvic swelling, mass and lump, unspecified site; Z78.0 Asymptomatic menopausal state; M19.90 Unspecified osteoarthritis, unspecified site; I48.20 Chronic atrial fibrillation, unspecified; E05.90 Thyrotoxicosis, unspecified without thyrotoxic crisis or storm; I83.019 Varicose veins of right lower extremity with ulcer of unspecified site; F32.9 Major depressive disorder, single episode, unspecified; J30.2 Other seasonal allergic rhinitis; M10.9 Gout, unspecified; F51.01 Primary insomnia; K59.00 Constipation, unspecified; E78.5 Hyperlipidemia, unspecified; Z79.899 Other long term (current) drug therapy; Z90.49 Acquired absence of other specified parts of digestive tract ==

== ENCOUNTER → 2022-01-31 | Outpatient (CLI) | payer MEDICARE ==
[2022-01-31 16:26] LABS: TRIGLYCERIDES 519 mg/dl (<150)
[2022-01-31 16:32] LABS: URINE CREATININE RANDOM 80.3 mg/dL
[2022-01-31 16:37] LABS: CHOLESTEROL 127 mg/dL (<200)
== END ==
LOC: LAB 15:20
PROVIDERS: Student in an Organized Health Care Education/Training Program; ATTEND Nurse Practitioner Family
DX: I12.9 Hypertensive chronic kidney disease with stage 1 through stage 4 chronic kidney disease, or unspecified chronic kidney disease (principal); N18.32 Chronic kidney disease, stage 3b; E21.1 Secondary hyperparathyroidism, not elsewhere classified; R80.9 Proteinuria, unspecified; E11.22 Type 2 diabetes mellitus with diabetic chronic kidney disease

== ENCOUNTER → 2022-02-14 | Outpatient (CLI) | payer MEDICARE ==
[2022-02-14 15:13] LABS: BASO % 0.5 % (0.0-1.0); EOS # 0.1 10*3/uL (0.0-0.4); EOS % 2.2 % (1.0-4.0); HEMATOCRIT 39.2 % (37.0-47.0); LYMPH # 1.9 10*3/uL (1.3-4.4); LYMPH % 32.4 % (27.0-41.0); MEAN CELL VOLUME 94.7 fl (81.0-99.0); MEAN CORPUSCULAR HGB 30.4 pg (27.0-31.0); MEAN CORPUSCULAR HGB CONC 32.1 g/dl (33.0-37.0); MEAN PLATELET VOLUME 10.3 fl (9.6-12.3); MONO # 0.5 10*3/uL (0.1-1.0); NEUT # 3.3 10*3/uL (2.3-7.9); NEUT % 56.4 % (47.0-73.0); PLATELET COUNT AUTOMATED 190 10*3/uL (130-400); RED BLOOD COUNT 4.14 10*6/uL (4.10-5.10); RED CELL DISTRI WIDTH 14.6 % (0-14.5); WHITE BLOOD COUNT 5.9 10*3/uL (4.8-10.8)
[2022-02-14 15:24] LABS: URINE CREATININE RANDOM 91.6 mg/dL
[2022-02-14 15:41] LABS: CREATININE 1.89 mg/dL (0.55-1.02); TOTAL PROTEIN 7.6 gm/dL (6.4-8.2); URIC ACID 4.8 mg/dL (2.6-6.0)
== END | disposition home or self-care (01) ==
LOC: LAB 14:52
PROVIDERS: ATTEND Nurse Practitioner Family
DX: I12.9 Hypertensive chronic kidney disease with stage 1 through stage 4 chronic kidney disease, or unspecified chronic kidney disease (principal); E11.29 Type 2 diabetes mellitus with other diabetic kidney complication; E11.22 Type 2 diabetes mellitus with diabetic chronic kidney disease; N18.32 Chronic kidney disease, stage 3b; E21.1 Secondary hyperparathyroidism, not elsewhere classified; R80.9 Proteinuria, unspecified

== ENCOUNTER → 2022-02-22 | Outpatient (CLI) | payer MEDICARE | END | disposition home or self-care (01) | LOC: RAD 08:48 → US 10:30 | PROVIDERS: ATTEND Emergency Medicine | DX: K76.0 Fatty (change of) liver, not elsewhere classified (principal); R16.0 Hepatomegaly, not elsewhere classified; R16.1 Splenomegaly, not elsewhere classified; Z90.49 Acquired absence of other specified parts of digestive tract; N28.1 Cyst of kidney, acquired; R19.00 Intra-abdominal and pelvic swelling, mass and lump, unspecified site; Z78.0 Asymptomatic menopausal state ==

== ENCOUNTER → 2022-03-02 | Outpatient (CLI) | payer MEDICARE ==
[2022-03-02 13:20] LABS: CREATININE 2.03 mg/dL (0.55-1.02)
[2022-03-02 13:29] LABS: THYROID STIM HORMONE (HS) 2.11 uIU/ml (0.358-4.75); URINE CREATININE RANDOM 67.6 mg/dL
== END | disposition home or self-care (01) ==
LOC: LAB 12:14
PROVIDERS: Internal Medicine Nephrology; ATTEND Internal Medicine Endocrinology, Diabetes & Metabolism
DX: E11.65 Type 2 diabetes mellitus with hyperglycemia (principal); E66.9 Obesity, unspecified; E78.5 Hyperlipidemia, unspecified; E53.8 Deficiency of other specified B group vitamins; E55.9 Vitamin D deficiency, unspecified; E05.20 Thyrotoxicosis with toxic multinodular goiter without thyrotoxic crisis or storm; E21.1 Secondary hyperparathyroidism, not elsewhere classified

== ENCOUNTER → 2022-03-09 | Outpatient (CLI) | payer MEDICARE ==
[2022-03-09 10:46] LABS: CREATININE 1.94 mg/dL (0.55-1.02); POTASSIUM 4.3 mmol/L (3.5-5.1)
== END | disposition home or self-care (01) ==
LOC: LAB 10:17
DX: I12.9 Hypertensive chronic kidney disease with stage 1 through stage 4 chronic kidney disease, or unspecified chronic kidney disease (principal); E11.22 Type 2 diabetes mellitus with diabetic chronic kidney disease; N18.32 Chronic kidney disease, stage 3b

== ENCOUNTER → 2022-03-14 | Outpatient (CLI) | payer MEDICARE | END | disposition home or self-care (01) | LOC: RESCLI 09:53 | PROVIDERS: ATTEND Internal Medicine | DX: I87.2 Venous insufficiency (chronic) (peripheral) (principal); K76.0 Fatty (change of) liver, not elsewhere classified; E78.1 Pure hyperglyceridemia; E11.22 Type 2 diabetes mellitus with diabetic chronic kidney disease; I12.9 Hypertensive chronic kidney disease with stage 1 through stage 4 chronic kidney disease, or unspecified chronic kidney disease; N18.9 Chronic kidney disease, unspecified; Z78.0 Asymptomatic menopausal state; I48.91 Unspecified atrial fibrillation; M10.9 Gout, unspecified; J30.2 Other seasonal allergic rhinitis; E05.90 Thyrotoxicosis, unspecified without thyrotoxic crisis or storm; Z90.49 Acquired absence of other specified parts of digestive tract; Z79.01 Long term (current) use of anticoagulants; Z79.899 Other long term (current) drug therapy ==

== ENCOUNTER → 2022-03-24 | Outpatient (CLI) | payer MEDICARE | END | disposition home or self-care (01) | LOC: WOUNDCARE 00:51 | PROVIDERS: ATTEND Nurse Practitioner Family | DX: S81.801A Unspecified open wound, right lower leg, initial encounter (principal); E11.622 Type 2 diabetes mellitus with other skin ulcer; L97.811 Non-pressure chronic ulcer of other part of right lower leg limited to breakdown of skin; E11.51 Type 2 diabetes mellitus with diabetic peripheral angiopathy without gangrene; I48.91 Unspecified atrial fibrillation; G47.30 Sleep apnea, unspecified; E05.80 Other thyrotoxicosis without thyrotoxic crisis or storm; M10.9 Gout, unspecified; F41.9 Anxiety disorder, unspecified; Z85.038 Personal history of other malignant neoplasm of large intestine; Z90.49 Acquired absence of other specified parts of digestive tract; Z96.652 Presence of left artificial knee joint; X58.XXXA Exposure to other specified factors, initial encounter; Y93.89 Activity, other specified; Y92.89 Other specified places as the place of occurrence of the external cause; Y99.8 Other external cause status ==

== ENCOUNTER → 2022-03-31 | Outpatient (CLI) | payer MEDICARE | END | disposition home or self-care (01) | LOC: WOUNDCARE 01:17 | PROVIDERS: ATTEND Nurse Practitioner Family | DX: S81.801D Unspecified open wound, right lower leg, subsequent encounter (principal); E11.622 Type 2 diabetes mellitus with other skin ulcer; L97.818 Non-pressure chronic ulcer of other part of right lower leg with other specified severity; E11.51 Type 2 diabetes mellitus with diabetic peripheral angiopathy without gangrene; I48.91 Unspecified atrial fibrillation; G47.30 Sleep apnea, unspecified; E05.90 Thyrotoxicosis, unspecified without thyrotoxic crisis or storm; M10.9 Gout, unspecified; F41.9 Anxiety disorder, unspecified; Z90.49 Acquired absence of other specified parts of digestive tract; Z96.652 Presence of left artificial knee joint; Z85.038 Personal history of other malignant neoplasm of large intestine; X58.XXXD Exposure to other specified factors, subsequent encounter ==

== ENCOUNTER → 2022-06-06 | Outpatient (CLI) | payer MEDICARE ==
[2022-06-06 12:57] LABS: POTASSIUM 4.3 mmol/L (3.4-5.1)
[2022-06-06 13:05] LABS: CREATININE 2.33 mg/dL (0.55-1.02)
[2022-06-06 13:07] LABS: TOTAL PROTEIN 7.4 gm/dL (6.0-8.0)
[2022-06-06 13:15] LABS: URINE CHLORIDE, RANDOM 104 mmol/L
[2022-06-06 13:23] LABS: URINE CREATININE RANDOM 35.69 mg/dL
[2022-06-06 13:32] LABS: THYROID STIM HORMONE (HS) 3.003 uIU/ml (0.550-4.780)
[2022-06-07 10:05] LABS: CREATININE,URINE 37.4 mg/dL (Not Estab.)
== END | disposition home or self-care (01) ==
LOC: LAB 12:03
PROVIDERS: Nurse Practitioner Adult Health; ATTEND Internal Medicine Endocrinology, Diabetes & Metabolism
DX: I12.9 Hypertensive chronic kidney disease with stage 1 through stage 4 chronic kidney disease, or unspecified chronic kidney disease (principal); E11.22 Type 2 diabetes mellitus with diabetic chronic kidney disease; N18.32 Chronic kidney disease, stage 3b; E11.65 Type 2 diabetes mellitus with hyperglycemia; E21.1 Secondary hyperparathyroidism, not elsewhere classified; R80.9 Proteinuria, unspecified; E11.29 Type 2 diabetes mellitus with other diabetic kidney complication; E05.20 Thyrotoxicosis with toxic multinodular goiter without thyrotoxic crisis or storm; E78.5 Hyperlipidemia, unspecified; E66.9 Obesity, unspecified; E53.8 Deficiency of other specified B group vitamins; E55.9 Vitamin D deficiency, unspecified

== ENCOUNTER → 2022-06-20 | Outpatient (CLI) | payer MEDICARE | END | disposition home or self-care (01) | LOC: RESCLI 08:12 | PROVIDERS: ATTEND Internal Medicine | DX: R14.0 Abdominal distension (gaseous) (principal); I48.91 Unspecified atrial fibrillation; M10.9 Gout, unspecified; E78.1 Pure hyperglyceridemia; M19.90 Unspecified osteoarthritis, unspecified site; K76.0 Fatty (change of) liver, not elsewhere classified; F51.01 Primary insomnia; J30.2 Other seasonal allergic rhinitis; F32.9 Major depressive disorder, single episode, unspecified; E11.65 Type 2 diabetes mellitus with hyperglycemia; E05.90 Thyrotoxicosis, unspecified without thyrotoxic crisis or storm; K59.00 Constipation, unspecified; E78.5 Hyperlipidemia, unspecified; I12.9 Hypertensive chronic kidney disease with stage 1 through stage 4 chronic kidney disease, or unspecified chronic kidney disease; E11.22 Type 2 diabetes mellitus with diabetic chronic kidney disease; N18.4 Chronic kidney disease, stage 4 (severe); Z78.0 Asymptomatic menopausal state; Z98.890 Other specified postprocedural states; Z90.49 Acquired absence of other specified parts of digestive tract; Z96.652 Presence of left artificial knee joint; Z72.89 Other problems related to lifestyle; Z79.01 Long term (current) use of anticoagulants; Z79.899 Other long term (current) drug therapy ==

== ENCOUNTER → 2022-06-28 | Outpatient (CLI) | payer MEDICARE | END | disposition home or self-care (01) | LOC: MAMMO 08:30 | PROVIDERS: ATTEND Student in an Organized Health Care Education/Training Program | DX: Z12.31 Encounter for screening mammogram for malignant neoplasm of breast (principal) ==

== ENCOUNTER → 2022-09-06 | Outpatient (CLI) | payer MEDICARE ==
[2022-09-06 11:01] LABS: THYROID STIM HORMONE (HS) 3.289 uIU/ml (0.550-4.780)
== END ==
LOC: LAB 09:35
PROVIDERS: ATTEND Internal Medicine Endocrinology, Diabetes & Metabolism
DX: E11.65 Type 2 diabetes mellitus with hyperglycemia (principal); E21.1 Secondary hyperparathyroidism, not elsewhere classified; E05.20 Thyrotoxicosis with toxic multinodular goiter without thyrotoxic crisis or storm; E66.9 Obesity, unspecified; E78.5 Hyperlipidemia, unspecified; E55.9 Vitamin D deficiency, unspecified

== ENCOUNTER → 2022-10-03 | Outpatient (CLI) | payer MEDICARE ==
[2022-10-03 14:23] LABS: BASO # 0.1 10*3/uL (0.0-0.1); BASO % 0.9 % (0.0-1.0); EOS # 0.2 10*3/uL (0.0-0.4); EOS % 3.5 % (1.0-4.0); HEMATOCRIT 43.8 % (37.0-47.0); LYMPH # 1.9 10*3/uL (1.3-4.4); LYMPH % 32.5 % (27.0-41.0); MEAN CELL VOLUME 93.8 fl (81.0-99.0); MEAN CORPUSCULAR HGB 29.6 pg (27.0-31.0); MEAN CORPUSCULAR HGB CONC 31.5 g/dl (33.0-37.0); MEAN PLATELET VOLUME 10.8 fl (9.6-12.3); MONO # 0.4 10*3/uL (0.1-1.0); MONO % 6.8 % (3.0-9.0); NEUT # 3.2 10*3/uL (2.3-7.9); PLATELET COUNT AUTOMATED 197 10*3/uL (130-400); RED BLOOD COUNT 4.67 10*6/uL (4.10-5.10); RED CELL DISTRI WIDTH 15.6 % (0-14.5); WHITE BLOOD COUNT 5.8 10*3/uL (4.8-10.8)
[2022-10-03 14:41] LABS: POTASSIUM 3.8 mmol/L (3.4-5.1); TOTAL PROTEIN 7.7 gm/dL (6.0-8.0); URIC ACID 4.8 mg/dL (3.1-7.8)
[2022-10-03 15:35] LABS: VITAMIN D, 25-HYDROXY 41.5 ng/mL (30-100)
== END | disposition home or self-care (01) ==
LOC: LAB 13:40
PROVIDERS: ATTEND Nurse Practitioner Adult Health
DX: I12.9 Hypertensive chronic kidney disease with stage 1 through stage 4 chronic kidney disease, or unspecified chronic kidney disease (principal); E11.22 Type 2 diabetes mellitus with diabetic chronic kidney disease; N18.32 Chronic kidney disease, stage 3b; E21.1 Secondary hyperparathyroidism, not elsewhere classified; I73.9 Peripheral vascular disease, unspecified; R80.9 Proteinuria, unspecified

== ENCOUNTER → 2022-10-23 | Outpatient (CLI) | payer MEDICARE | END | disposition home or self-care (01) | LOC: RAD 16:29 | PROVIDERS: ATTEND Nurse Practitioner Family | DX: I13.0 Hypertensive heart and chronic kidney disease with heart failure and stage 1 through stage 4 chronic kidney disease, or unspecified chronic kidney disease (principal); I50.9 Heart failure, unspecified; N18.32 Chronic kidney disease, stage 3b ==

== ENCOUNTER → 2022-12-22 | Outpatient (CLI) | payer MEDICARE ==
[2022-12-22 13:15] LABS: THYROID STIM HORMONE (HS) 2.028 uIU/ml (0.550-4.780); VITAMIN D, 25-HYDROXY 37.6 ng/mL (30-100)
== END | disposition home or self-care (01) ==
LOC: LAB 12:15
PROVIDERS: ATTEND Internal Medicine Endocrinology, Diabetes & Metabolism
DX: E11.65 Type 2 diabetes mellitus with hyperglycemia (principal); E21.1 Secondary hyperparathyroidism, not elsewhere classified; E05.20 Thyrotoxicosis with toxic multinodular goiter without thyrotoxic crisis or storm; E66.9 Obesity, unspecified; E78.5 Hyperlipidemia, unspecified; E53.8 Deficiency of other specified B group vitamins; E55.9 Vitamin D deficiency, unspecified

== ENCOUNTER → 2022-12-26 | Outpatient (CLI) | payer MEDICARE | END | disposition home or self-care (01) | LOC: RESCLI 01:17 | PROVIDERS: ATTEND Student in an Organized Health Care Education/Training Program | DX: I12.9 Hypertensive chronic kidney disease with stage 1 through stage 4 chronic kidney disease, or unspecified chronic kidney disease (principal); E11.22 Type 2 diabetes mellitus with diabetic chronic kidney disease; N18.30 Chronic kidney disease, stage 3 unspecified; I87.2 Venous insufficiency (chronic) (peripheral); I48.20 Chronic atrial fibrillation, unspecified; E05.90 Thyrotoxicosis, unspecified without thyrotoxic crisis or storm; M10.9 Gout, unspecified; E11.65 Type 2 diabetes mellitus with hyperglycemia; F32.9 Major depressive disorder, single episode, unspecified; E78.5 Hyperlipidemia, unspecified; I83.019 Varicose veins of right lower extremity with ulcer of unspecified site; F51.01 Primary insomnia; R19.00 Intra-abdominal and pelvic swelling, mass and lump, unspecified site; Z78.0 Asymptomatic menopausal state; M19.90 Unspecified osteoarthritis, unspecified site; K59.00 Constipation, unspecified; K76.0 Fatty (change of) liver, not elsewhere classified; E78.1 Pure hyperglyceridemia; I48.91 Unspecified atrial fibrillation; E55.9 Vitamin D deficiency, unspecified; Z82.49 Family history of ischemic heart disease and other diseases of the circulatory system; Z88.8 Allergy status to other drugs, medicaments and biological substances; Z98.890 Other specified postprocedural states; Z79.899 Other long term (current) drug therapy ==

== ENCOUNTER → 2023-02-13 | Outpatient (CLI) | payer MEDICARE ==
[2023-02-13 12:51] LABS: BASO % 0.6 % (0.0-1.0); EOS # 0.1 10*3/uL (0.0-0.4); EOS % 2.1 % (1.0-4.0); HEMATOCRIT 39.2 % (37.0-47.0); LYMPH # 1.9 10*3/uL (1.3-4.4); LYMPH % 28.7 % (27.0-41.0); MEAN CELL VOLUME 95.1 fl (81.0-99.0); MEAN CORPUSCULAR HGB 30.6 pg (27.0-31.0); MEAN CORPUSCULAR HGB CONC 32.1 g/dl (33.0-37.0); MEAN PLATELET VOLUME 10.7 fl (9.6-12.3); MONO # 0.4 10*3/uL (0.1-1.0); MONO % 5.8 % (3.0-9.0); NEUT # 4.2 10*3/uL (2.3-7.9); NEUT % 62.5 % (47.0-73.0); PLATELET COUNT AUTOMATED 176 10*3/uL (130-400); RED BLOOD COUNT 4.12 10*6/uL (4.10-5.10); RED CELL DISTRI WIDTH 14.7 % (0-14.5); WHITE BLOOD COUNT 6.8 10*3/uL (4.8-10.8)
[2023-02-13 12:57] LABS: URINE CREATININE RANDOM 67.01 mg/dL
[2023-02-13 13:22] LABS: TOTAL PROTEIN 7.2 gm/dL (6.0-8.0); URIC ACID 3.9 mg/dL (3.1-7.8)
== END | disposition home or self-care (01) ==
LOC: LAB 12:23
PROVIDERS: ATTEND Nurse Practitioner Family
DX: I12.9 Hypertensive chronic kidney disease with stage 1 through stage 4 chronic kidney disease, or unspecified chronic kidney disease (principal); N18.32 Chronic kidney disease, stage 3b

== ENCOUNTER → 2023-03-23 | Outpatient (CLI) | payer MEDICARE | END | disposition home or self-care (01) | LOC: LAB 10:44 | PROVIDERS: ATTEND Internal Medicine Endocrinology, Diabetes & Metabolism | DX: E78.5 Hyperlipidemia, unspecified (principal); E11.65 Type 2 diabetes mellitus with hyperglycemia; E05.20 Thyrotoxicosis with toxic multinodular goiter without thyrotoxic crisis or storm; E21.1 Secondary hyperparathyroidism, not elsewhere classified; E66.9 Obesity, unspecified; E53.8 Deficiency of other specified B group vitamins; E55.9 Vitamin D deficiency, unspecified; E11.40 Type 2 diabetes mellitus with diabetic neuropathy, unspecified ==

== ENCOUNTER → 2023-06-06 | Outpatient (CLI) | payer MEDICARE ==
[2023-06-06 10:25] LABS: BASO % 0.4 % (0.0-1.0); EOS # 0.2 10*3/uL (0.0-0.4); EOS % 2.8 % (1.0-4.0); HEMATOCRIT 42.8 % (37.0-47.0); LYMPH # 2.2 10*3/uL (1.3-4.4); LYMPH % 38.5 % (27.0-41.0); MEAN CELL VOLUME 96.4 fl (81.0-99.0); MEAN CORPUSCULAR HGB 31.5 pg (27.0-31.0); MEAN CORPUSCULAR HGB CONC 32.7 g/dl (33.0-37.0); MEAN PLATELET VOLUME 10.3 fl (9.6-12.3); MONO # 0.4 10*3/uL (0.1-1.0); MONO % 7.4 % (3.0-9.0); NEUT # 2.9 10*3/uL (2.3-7.9); NEUT % 50.5 % (47.0-73.0); PLATELET COUNT AUTOMATED 213 10*3/uL (130-400); RED BLOOD COUNT 4.44 10*6/uL (4.10-5.10); RED CELL DISTRI WIDTH 14.6 % (0-14.5); WHITE BLOOD COUNT 5.7 10*3/uL (4.8-10.8)
[2023-06-06 10:26] LABS: BILIRUBIN Negative (Negative); BLOOD Trace-Lysed (Negative); CLARITY Clear (Clear); COLOR Yellow (Yellow); GLUCOSE Negative (Negative); KETONE Negative (Negative); LEUKO ESTERASE 2+ (Negative); NITRITE Negative (Negative); SPECIFIC GRAVITY 1.015 (1.001-1.030); UROBILINOGEN 0.2 E.U./dl (0.0-1.0)
[2023-06-06 10:37] LABS: URINE CREATININE RANDOM 64.94 mg/dL
[2023-06-06 11:00] LABS: POTASSIUM 4.2 mmol/L (3.4-5.1); TOTAL PROTEIN 7.6 gm/dL (6.0-8.0); URIC ACID 4.4 mg/dL (3.1-7.8)
[2023-06-06 11:54] LABS: WBC 31-40 wbc/hpf (0-5)
[2023-06-06 11:55] LABS: BACTERIA 2+; HYALINE CAST 0-2; RBC 0-2 rbc/hpf (0-2)
== END | disposition home or self-care (01) ==
LOC: LAB 09:52
PROVIDERS: ATTEND Internal Medicine Nephrology
DX: I13.0 Hypertensive heart and chronic kidney disease with heart failure and stage 1 through stage 4 chronic kidney disease, or unspecified chronic kidney disease (principal); E11.22 Type 2 diabetes mellitus with diabetic chronic kidney disease; I50.9 Heart failure, unspecified; N18.32 Chronic kidney disease, stage 3b; D63.1 Anemia in chronic kidney disease; Z79.899 Other long term (current) drug therapy

== ENCOUNTER → 2023-06-27 | Outpatient (CLI) | payer MEDICARE ==
[2023-06-27 09:32] LABS: VITAMIN D, 25-HYDROXY 39.7 ng/mL (30-100)
== END | disposition home or self-care (01) ==
LOC: LAB 07:43
PROVIDERS: ATTEND Internal Medicine Endocrinology, Diabetes & Metabolism
DX: E11.65 Type 2 diabetes mellitus with hyperglycemia (principal); E05.20 Thyrotoxicosis with toxic multinodular goiter without thyrotoxic crisis or storm; E21.1 Secondary hyperparathyroidism, not elsewhere classified; E66.9 Obesity, unspecified; E78.5 Hyperlipidemia, unspecified; E53.8 Deficiency of other specified B group vitamins; E55.9 Vitamin D deficiency, unspecified; E11.40 Type 2 diabetes mellitus with diabetic neuropathy, unspecified

== ENCOUNTER → 2023-06-27 | Outpatient (CLI) | payer MEDICARE | END | disposition home or self-care (01) | LOC: RESCLI 01:25 | PROVIDERS: ATTEND Student in an Organized Health Care Education/Training Program | DX: I12.9 Hypertensive chronic kidney disease with stage 1 through stage 4 chronic kidney disease, or unspecified chronic kidney disease (principal); E11.22 Type 2 diabetes mellitus with diabetic chronic kidney disease; N18.30 Chronic kidney disease, stage 3 unspecified; J30.2 Other seasonal allergic rhinitis; E78.5 Hyperlipidemia, unspecified; I87.2 Venous insufficiency (chronic) (peripheral); E05.90 Thyrotoxicosis, unspecified without thyrotoxic crisis or storm; M10.9 Gout, unspecified; E11.65 Type 2 diabetes mellitus with hyperglycemia; E55.9 Vitamin D deficiency, unspecified; F32.9 Major depressive disorder, single episode, unspecified; F51.01 Primary insomnia; R19.00 Intra-abdominal and pelvic swelling, mass and lump, unspecified site; K76.0 Fatty (change of) liver, not elsewhere classified; E78.1 Pure hyperglyceridemia; Z98.890 Other specified postprocedural states; Z82.49 Family history of ischemic heart disease and other diseases of the circulatory system; Z90.49 Acquired absence of other specified parts of digestive tract; Z79.899 Other long term (current) drug therapy ==

== ENCOUNTER → 2023-07-19 | Outpatient (CLI) | payer MEDICARE ==
[2023-07-19 15:57] LABS: POTASSIUM 4.1 mmol/L (3.4-5.1)
== END | disposition home or self-care (01) ==
LOC: LAB 15:07
PROVIDERS: ATTEND Internal Medicine Nephrology
DX: I12.9 Hypertensive chronic kidney disease with stage 1 through stage 4 chronic kidney disease, or unspecified chronic kidney disease (principal); E11.22 Type 2 diabetes mellitus with diabetic chronic kidney disease; N18.4 Chronic kidney disease, stage 4 (severe); E11.51 Type 2 diabetes mellitus with diabetic peripheral angiopathy without gangrene; E21.1 Secondary hyperparathyroidism, not elsewhere classified

== ENCOUNTER → 2023-09-25 | Outpatient (CLI) | payer MEDICARE ==
[2023-09-25 12:53] LABS: VITAMIN D, 25-HYDROXY 43.3 ng/mL (30-100)
== END | disposition home or self-care (01) ==
LOC: LAB 11:35
PROVIDERS: ATTEND Internal Medicine Endocrinology, Diabetes & Metabolism
DX: E11.65 Type 2 diabetes mellitus with hyperglycemia (principal); E11.40 Type 2 diabetes mellitus with diabetic neuropathy, unspecified; E05.20 Thyrotoxicosis with toxic multinodular goiter without thyrotoxic crisis or storm; E21.1 Secondary hyperparathyroidism, not elsewhere classified; E66.9 Obesity, unspecified; E78.5 Hyperlipidemia, unspecified; E53.8 Deficiency of other specified B group vitamins; E55.9 Vitamin D deficiency, unspecified

== ENCOUNTER → 2023-10-12 | Outpatient (CLI) | payer MEDICARE ==
[2023-10-12 14:13] LABS: BASO % 0.3 % (0.0-1.0); EOS # 0.1 10*3/uL (0.0-0.4); EOS % 1.1 % (1.0-4.0); HEMATOCRIT 44.8 % (37.0-47.0); LYMPH # 2.2 10*3/uL (1.3-4.4); LYMPH % 25.1 % (27.0-41.0); MEAN CELL VOLUME 96.8 fl (81.0-99.0); MEAN CORPUSCULAR HGB 29.6 pg (27.0-31.0); MEAN CORPUSCULAR HGB CONC 30.6 g/dl (33.0-37.0); MEAN PLATELET VOLUME 10.3 fl (9.6-12.3); MONO # 0.6 10*3/uL (0.1-1.0); MONO % 6.8 % (3.0-9.0); NEUT # 5.9 10*3/uL (2.3-7.9); NEUT % 66.5 % (47.0-73.0); PLATELET COUNT AUTOMATED 237 10*3/uL (130-400); RED BLOOD COUNT 4.63 10*6/uL (4.10-5.10); RED CELL DISTRI WIDTH 14.9 % (0-14.5); WHITE BLOOD COUNT 8.9 10*3/uL (4.8-10.8)
[2023-10-12 14:14] LABS: BILIRUBIN Negative (Negative); BLOOD 1+ (Negative); CLARITY Clear (Clear); COLOR Yellow (Yellow); GLUCOSE Negative (Negative); KETONE Negative (Negative); LEUKO ESTERASE Trace (Negative); NITRITE Negative (Negative); PH 5.5 (4.5-8.0); SPECIFIC GRAVITY 1.015 (1.001-1.030); UROBILINOGEN 0.2 E.U./dl (0.0-1.0)
[2023-10-12 14:38] LABS: POTASSIUM 4.1 mmol/L (3.4-5.1); TOTAL PROTEIN 7.6 gm/dL (6.0-8.0); URIC ACID 4.6 mg/dL (3.1-7.8)
[2023-10-12 14:54] LABS: EPITHELIAL CELLS 21-30; RBC 0-2 rbc/hpf (0-2)
[2023-10-12 18:05] LABS: URINE CREATININE RANDOM 72.12 mg/dL
== END | disposition home or self-care (01) ==
LOC: LAB 13:36
PROVIDERS: ATTEND Internal Medicine Nephrology
DX: I12.9 Hypertensive chronic kidney disease with stage 1 through stage 4 chronic kidney disease, or unspecified chronic kidney disease (principal); E11.22 Type 2 diabetes mellitus with diabetic chronic kidney disease; N18.4 Chronic kidney disease, stage 4 (severe); E21.1 Secondary hyperparathyroidism, not elsewhere classified; I73.9 Peripheral vascular disease, unspecified

== ENCOUNTER 2023-11-22 18:25 | Emergency (ER) | payer MEDICARE ==
[~2023-11-22] VITALS: Wt 88.0 kg
[2023-11-22] MEDS ORDERED: Oxymetazoline Hydrochloride Nasal 15 ml bottle NAS ONE (18:45)
[2023-11-22] MEDS ORDERED: Phenylephrine HydrochloridE 0.5% NASAL 15 ML BOTTLE NAS ONE (19:30)
== END 2023-11-22 21:11 | disposition home or self-care (01) ==
LOC: ED 18:25
DX: R04.0 Epistaxis (principal); Z88.2 Allergy status to sulfonamides; Z90.49 Acquired absence of other specified parts of digestive tract; Z95.5 Presence of coronary angioplasty implant and graft; Z98.890 Other specified postprocedural states

== ENCOUNTER → 2023-12-05 | Outpatient (CLI) | payer MEDICARE | END | disposition home or self-care (01) | LOC: RESCLI 01:12 | PROVIDERS: ATTEND Internal Medicine | DX: I12.9 Hypertensive chronic kidney disease with stage 1 through stage 4 chronic kidney disease, or unspecified chronic kidney disease (principal); E11.22 Type 2 diabetes mellitus with diabetic chronic kidney disease; E11.65 Type 2 diabetes mellitus with hyperglycemia; N18.30 Chronic kidney disease, stage 3 unspecified; I87.2 Venous insufficiency (chronic) (peripheral); E05.90 Thyrotoxicosis, unspecified without thyrotoxic crisis or storm; M10.9 Gout, unspecified; E55.9 Vitamin D deficiency, unspecified; F32.9 Major depressive disorder, single episode, unspecified; J30.2 Other seasonal allergic rhinitis; E78.5 Hyperlipidemia, unspecified; I83.019 Varicose veins of right lower extremity with ulcer of unspecified site; F51.01 Primary insomnia; M19.90 Unspecified osteoarthritis, unspecified site; K59.00 Constipation, unspecified; K76.0 Fatty (change of) liver, not elsewhere classified; E78.1 Pure hyperglyceridemia; I48.91 Unspecified atrial fibrillation; R51.9 Headache, unspecified; Z78.0 Asymptomatic menopausal state; Z79.899 Other long term (current) drug therapy; Z88.8 Allergy status to other drugs, medicaments and biological substances; Z98.890 Other specified postprocedural states ==

== ENCOUNTER → 2023-12-26 | Outpatient (CLI) | payer MEDICARE ==
[2023-12-26 13:32] LABS: POTASSIUM 4.4 mmol/L (3.4-5.1); TOTAL PROTEIN 7.2 gm/dL (6.0-8.0)
== END | disposition home or self-care (01) ==
LOC: LAB 12:40
PROVIDERS: ATTEND Internal Medicine Endocrinology, Diabetes & Metabolism
DX: E11.65 Type 2 diabetes mellitus with hyperglycemia (principal); E05.20 Thyrotoxicosis with toxic multinodular goiter without thyrotoxic crisis or storm; E21.1 Secondary hyperparathyroidism, not elsewhere classified; E66.9 Obesity, unspecified; E78.5 Hyperlipidemia, unspecified; E53.8 Deficiency of other specified B group vitamins; E55.9 Vitamin D deficiency, unspecified; E11.40 Type 2 diabetes mellitus with diabetic neuropathy, unspecified

== ENCOUNTER → 2024-04-01 | Outpatient (CLI) | payer MEDICARE ==
[2024-04-01 11:35] LABS: BASO % 0.3 % (0.0-1.0); EOS # 0.1 10*3/uL (0.0-0.4); EOS % 2.4 % (1.0-4.0); LYMPH # 2.1 10*3/uL (1.3-4.4); LYMPH % 36.1 % (27.0-41.0); MEAN CELL VOLUME 95.9 fl (81.0-99.0); MEAN CORPUSCULAR HGB 29.3 pg (27.0-31.0); MEAN CORPUSCULAR HGB CONC 30.5 g/dl (33.0-37.0); MEAN PLATELET VOLUME 10.9 fl (9.6-12.3); MONO # 0.4 10*3/uL (0.1-1.0); MONO % 6.8 % (3.0-9.0); NEUT # 3.1 10*3/uL (2.3-7.9); NEUT % 54.2 % (47.0-73.0); PLATELET COUNT AUTOMATED 196 10*3/uL (130-400); RED BLOOD COUNT 4.17 10*6/uL (4.10-5.10); RED CELL DISTRI WIDTH 14.9 % (0-14.5); WHITE BLOOD COUNT 5.7 10*3/uL (4.8-10.8)
[2024-04-01 11:48] LABS: URINE CREATININE RANDOM 66.04 mg/dL
[2024-04-01 11:58] LABS: POTASSIUM 4.2 mmol/L (3.4-5.1); TOTAL PROTEIN 7.3 gm/dL (6.0-8.0); URIC ACID 4.1 mg/dL (3.1-7.8)
[2024-04-01 12:03] LABS: VITAMIN D, 25-HYDROXY 38.9 ng/mL (30-100)
== END | disposition home or self-care (01) ==
LOC: LAB 10:54
PROVIDERS: Internal Medicine Nephrology; ATTEND Internal Medicine Endocrinology, Diabetes & Metabolism
DX: I12.9 Hypertensive chronic kidney disease with stage 1 through stage 4 chronic kidney disease, or unspecified chronic kidney disease (principal); E11.22 Type 2 diabetes mellitus with diabetic chronic kidney disease; E11.40 Type 2 diabetes mellitus with diabetic neuropathy, unspecified; N18.4 Chronic kidney disease, stage 4 (severe); E05.20 Thyrotoxicosis with toxic multinodular goiter without thyrotoxic crisis or storm; E66.9 Obesity, unspecified; E78.5 Hyperlipidemia, unspecified; E53.8 Deficiency of other specified B group vitamins; E55.9 Vitamin D deficiency, unspecified

== ENCOUNTER → 2024-06-04 | Outpatient (CLI) | payer MEDICARE | END | disposition home or self-care (01) | LOC: RESCLI 00:48 | PROVIDERS: ATTEND Internal Medicine | DX: I12.9 Hypertensive chronic kidney disease with stage 1 through stage 4 chronic kidney disease, or unspecified chronic kidney disease (principal); N18.30 Chronic kidney disease, stage 3 unspecified; I87.2 Venous insufficiency (chronic) (peripheral); I48.20 Chronic atrial fibrillation, unspecified; E05.90 Thyrotoxicosis, unspecified without thyrotoxic crisis or storm; M10.9 Gout, unspecified; E11.65 Type 2 diabetes mellitus with hyperglycemia; E11.22 Type 2 diabetes mellitus with diabetic chronic kidney disease; E55.9 Vitamin D deficiency, unspecified; F32.9 Major depressive disorder, single episode, unspecified; J30.2 Other seasonal allergic rhinitis; E78.5 Hyperlipidemia, unspecified; F51.01 Primary insomnia; R19.00 Intra-abdominal and pelvic swelling, mass and lump, unspecified site; M19.90 Unspecified osteoarthritis, unspecified site; K76.0 Fatty (change of) liver, not elsewhere classified; E78.1 Pure hyperglyceridemia; R51.9 Headache, unspecified; D63.1 Anemia in chronic kidney disease; K92.89 Other specified diseases of the digestive system; Z78.0 Asymptomatic menopausal state; Z79.899 Other long term (current) drug therapy; Z98.890 Other specified postprocedural states; Z88.8 Allergy status to other drugs, medicaments and biological substances ==

== ENCOUNTER → 2024-08-22 | Outpatient (CLI) | payer MEDICARE ==
[2024-08-22 11:00] LABS: BASO % 0.5 % (0.0-1.0); EOS # 0.1 10*3/uL (0.0-0.4); EOS % 2.1 % (1.0-4.0); HEMATOCRIT 39.2 % (37.0-47.0); MEAN CELL VOLUME 96.1 fl (81.0-99.0); MEAN CORPUSCULAR HGB 29.4 pg (27.0-31.0); MEAN CORPUSCULAR HGB CONC 30.6 g/dl (33.0-37.0); MEAN PLATELET VOLUME 10.2 fl (9.6-12.3); MONO # 0.5 10*3/uL (0.1-1.0); MONO % 7.3 % (3.0-9.0); NEUT # 4.2 10*3/uL (2.3-7.9); NEUT % 64.1 % (47.0-73.0); PLATELET COUNT AUTOMATED 203 10*3/uL (130-400); RED BLOOD COUNT 4.08 10*6/uL (4.10-5.10); RED CELL DISTRI WIDTH 14.9 % (0-14.5); WHITE BLOOD COUNT 6.6 10*3/uL (4.8-10.8)
[2024-08-22 11:40] LABS: POTASSIUM 4.3 mmol/L (3.4-5.1); URIC ACID 4.5 mg/dL (3.1-7.8)
[2024-08-22 11:54] LABS: VITAMIN D, 25-HYDROXY 35.4 ng/mL (30-100)
== END ==
LOC: LAB 10:31
PROVIDERS: ATTEND Internal Medicine Nephrology
DX: I12.9 Hypertensive chronic kidney disease with stage 1 through stage 4 chronic kidney disease, or unspecified chronic kidney disease (principal); N18.4 Chronic kidney disease, stage 4 (severe); E21.1 Secondary hyperparathyroidism, not elsewhere classified; E55.9 Vitamin D deficiency, unspecified; E83.52 Hypercalcemia

== ENCOUNTER → 2024-09-15 | Outpatient (CLI) | payer MEDICARE | END | disposition home or self-care (01) | LOC: RESCLI 01:24 | PROVIDERS: ATTEND Internal Medicine | DX: T30.0 Burn of unspecified body region, unspecified degree (principal); M10.9 Gout, unspecified; E11.9 Type 2 diabetes mellitus without complications; E78.5 Hyperlipidemia, unspecified; I48.91 Unspecified atrial fibrillation; E78.1 Pure hyperglyceridemia; K92.89 Other specified diseases of the digestive system; D64.9 Anemia, unspecified; E05.90 Thyrotoxicosis, unspecified without thyrotoxic crisis or storm; J30.2 Other seasonal allergic rhinitis; F32.9 Major depressive disorder, single episode, unspecified; K59.00 Constipation, unspecified; I10 Essential (primary) hypertension; F51.01 Primary insomnia; E55.9 Vitamin D deficiency, unspecified; N95.2 Postmenopausal atrophic vaginitis; Z79.899 Other long term (current) drug therapy; Z98.890 Other specified postprocedural states; Z88.8 Allergy status to other drugs, medicaments and biological substances ==

== ENCOUNTER → 2024-10-13 | Outpatient (CLI) | payer MEDICARE | END | disposition home or self-care (01) | LOC: RESCLI 03:14 | PROVIDERS: ATTEND Internal Medicine | DX: E11.9 Type 2 diabetes mellitus without complications (principal); E05.90 Thyrotoxicosis, unspecified without thyrotoxic crisis or storm; M10.9 Gout, unspecified; E78.5 Hyperlipidemia, unspecified; I48.91 Unspecified atrial fibrillation; E78.1 Pure hyperglyceridemia; K92.89 Other specified diseases of the digestive system; D64.9 Anemia, unspecified; F32.9 Major depressive disorder, single episode, unspecified; J30.2 Other seasonal allergic rhinitis; K59.00 Constipation, unspecified; I10 Essential (primary) hypertension; T30.0 Burn of unspecified body region, unspecified degree; F51.01 Primary insomnia; E55.9 Vitamin D deficiency, unspecified; E56.9 Vitamin deficiency, unspecified; N95.2 Postmenopausal atrophic vaginitis; Z13.820 Encounter for screening for osteoporosis; Z12.39 Encounter for other screening for malignant neoplasm of breast; Z79.899 Other long term (current) drug therapy; Z98.890 Other specified postprocedural states; Z88.8 Allergy status to other drugs, medicaments and biological substances ==

== ENCOUNTER → 2024-12-23 | Outpatient (CLI) | payer MEDICARE | END | disposition home or self-care (01) | LOC: LAB 11:29 | PROVIDERS: Student in an Organized Health Care Education/Training Program; ATTEND Student in an Organized Health Care Education/Training Program | DX: E11.65 Type 2 diabetes mellitus with hyperglycemia (principal) ==

== ENCOUNTER → 2025-01-22 | Outpatient (CLI) | payer MEDICARE ==
[2025-01-22 15:42] LABS: BASO # 0.0 10*3/uL (0.0-0.1); BASO % 0.5 % (0.0-1.0); EOS # 0.2 10*3/uL (0.0-0.4); EOS % 2.6 % (1.0-4.0); MEAN CELL VOLUME 94.7 fl (81.0-99.0); MEAN CORPUSCULAR HGB 28.8 pg (27.0-31.0); MEAN PLATELET VOLUME 10.9 fl (9.6-12.3); MONO # 0.6 10*3/uL (0.1-1.0); MONO % 8.7 % (3.0-9.0); NEUT # 3.7 10*3/uL (2.3-7.9); NEUT % 56.7 % (47.0-73.0); NUCLEATED RED BLOOD CELL 0.0 % (0.0-0.0); NUCLEATED RED BLOOD CELL 0.0 10*3/uL (0.0-0.0); PLATELET COUNT AUTOMATED 210 10*3/uL (130-400); RED CELL DISTRI WIDTH 15.1 % (0-14.5)
[2025-01-22 16:08] LABS: BUN 41.0 mg/dl (9-23); SGPT/ALT 15.0 U/L (5-49)
== END | disposition home or self-care (01) ==
LOC: LAB 15:10
PROVIDERS: ATTEND Internal Medicine Nephrology
DX: I12.9 Hypertensive chronic kidney disease with stage 1 through stage 4 chronic kidney disease, or unspecified chronic kidney disease (principal); E11.22 Type 2 diabetes mellitus with diabetic chronic kidney disease; N18.4 Chronic kidney disease, stage 4 (severe); R80.9 Proteinuria, unspecified

== ENCOUNTER → 2025-03-16 | Outpatient (CLI) | payer MEDICARE | END | disposition home or self-care (01) | LOC: RESCLI 02:09 | PROVIDERS: ATTEND Internal Medicine | DX: R91.1 Solitary pulmonary nodule (principal); E78.5 Hyperlipidemia, unspecified; K92.89 Other specified diseases of the digestive system; D64.9 Anemia, unspecified; F32.9 Major depressive disorder, single episode, unspecified; K59.00 Constipation, unspecified; E55.9 Vitamin D deficiency, unspecified; N95.2 Postmenopausal atrophic vaginitis; E56.9 Vitamin deficiency, unspecified; F51.01 Primary insomnia; I48.91 Unspecified atrial fibrillation; I10 Essential (primary) hypertension; E78.1 Pure hyperglyceridemia; E11.65 Type 2 diabetes mellitus with hyperglycemia; E11.9 Type 2 diabetes mellitus without complications; E05.90 Thyrotoxicosis, unspecified without thyrotoxic crisis or storm; J30.2 Other seasonal allergic rhinitis; M10.9 Gout, unspecified; Z79.899 Other long term (current) drug therapy ==

== ENCOUNTER → 2025-03-19 | Outpatient (CLI) | payer MEDICARE ==
[2025-03-19 12:18] LABS: BASO # 0.0 10*3/uL (0.0-0.1); BASO % 0.5 % (0.0-1.0); EOS # 0.2 10*3/uL (0.0-0.4); EOS % 2.7 % (1.0-4.0); MEAN CELL VOLUME 95.9 fl (81.0-99.0); MEAN CORPUSCULAR HGB 29.2 pg (27.0-31.0); MEAN PLATELET VOLUME 10.0 fl (9.6-12.3); MONO # 0.5 10*3/uL (0.1-1.0); MONO % 8.6 % (3.0-9.0); NEUT # 3.0 10*3/uL (2.3-7.9); NEUT % 54.7 % (47.0-73.0); NUCLEATED RED BLOOD CELL 0.0 % (0.0-0.0); NUCLEATED RED BLOOD CELL 0.0 10*3/uL (0.0-0.0); PLATELET COUNT AUTOMATED 202 10*3/uL (130-400); RED CELL DISTRI WIDTH 14.6 % (0-14.5)
[2025-03-19 13:02] LABS: BUN 44.0 mg/dl (9-23)
== END | disposition home or self-care (01) ==
LOC: LAB 11:48
PROVIDERS: ATTEND Internal Medicine Nephrology
DX: I12.9 Hypertensive chronic kidney disease with stage 1 through stage 4 chronic kidney disease, or unspecified chronic kidney disease (principal); N18.32 Chronic kidney disease, stage 3b

== ENCOUNTER → 2025-03-27 | Outpatient (CLI) | payer MEDICARE | END | disposition home or self-care (01) | LOC: RAD 03-17 17:14 | DX: R91.8 Other nonspecific abnormal finding of lung field (principal); I25.10 Atherosclerotic heart disease of native coronary artery without angina pectoris; I51.7 Cardiomegaly; E04.1 Nontoxic single thyroid nodule; I70.0 Atherosclerosis of aorta ==

== ENCOUNTER 2025-04-21 12:52 | Emergency (ER) | payer OTHER, MEDICARE ==
[~2025-04-21] VITALS: Ht 160 cm; Wt 89.4 kg
[2025-04-21] MEDS ORDERED: Acetaminophen/Oxycodone 5 MG/325 MG TABLET PO ONE (12:55)
[2025-04-21] MEDS ORDERED: TRAMADOL HCL50 MG PO (13:34)
== END 2025-04-21 13:41 | disposition home or self-care (01) ==
LOC: ED 12:52
DX: R07.89 Other chest pain (principal); I10 Essential (primary) hypertension; E11.9 Type 2 diabetes mellitus without complications; I48.91 Unspecified atrial fibrillation; Z98.890 Other specified postprocedural states; Z88.2 Allergy status to sulfonamides; Z90.49 Acquired absence of other specified parts of digestive tract; V43.52XA Car driver injured in collision with other type car in traffic accident, initial encounter; Y93.89 Activity, other specified; Y92.89 Other specified places as the place of occurrence of the external cause; Y99.8 Other external cause status

== ENCOUNTER → 2025-04-29 | Outpatient (CLI) | payer MEDICARE ==
[~2025-04-29] MED LIST changes: +TRAMADOL HCL50 MG PO
[2025-04-29 10:25] LABS: BASO # 0.0 10*3/uL (0.0-0.1); BASO % 0.2 % (0.0-1.0); EOS # 0.2 10*3/uL (0.0-0.4); EOS % 2.6 % (1.0-4.0); MEAN CELL VOLUME 94.8 fl (81.0-99.0); MEAN CORPUSCULAR HGB 29.4 pg (27.0-31.0); MEAN PLATELET VOLUME 10.0 fl (9.6-12.3); MONO # 0.5 10*3/uL (0.1-1.0); MONO % 7.9 % (3.0-9.0); NEUT # 3.5 10*3/uL (2.3-7.9); NEUT % 59.2 % (47.0-73.0); NUCLEATED RED BLOOD CELL 0.0 % (0.0-0.0); NUCLEATED RED BLOOD CELL 0.0 10*3/uL (0.0-0.0); PLATELET COUNT AUTOMATED 220 10*3/uL (130-400); RED CELL DISTRI WIDTH 14.6 % (0-14.5)
[2025-04-29 11:20] LABS: BUN 52.0 mg/dl (9-23)
== END | disposition home or self-care (01) ==
LOC: LAB 09:49
PROVIDERS: ATTEND Internal Medicine Nephrology
DX: I12.9 Hypertensive chronic kidney disease with stage 1 through stage 4 chronic kidney disease, or unspecified chronic kidney disease (principal); N18.4 Chronic kidney disease, stage 4 (severe)

== ENCOUNTER → 2025-05-04 | Outpatient (CLI) | payer OTHER, MEDICARE | END | disposition home or self-care (01) | LOC: RESCLI 00:04 | PROVIDERS: ATTEND Internal Medicine | DX: I10 Essential (primary) hypertension (principal); E78.5 Hyperlipidemia, unspecified; K92.89 Other specified diseases of the digestive system; F51.01 Primary insomnia; E11.65 Type 2 diabetes mellitus with hyperglycemia; M10.9 Gout, unspecified; I48.91 Unspecified atrial fibrillation; N95.2 Postmenopausal atrophic vaginitis; E78.1 Pure hyperglyceridemia; D64.9 Anemia, unspecified; E05.90 Thyrotoxicosis, unspecified without thyrotoxic crisis or storm; J30.2 Other seasonal allergic rhinitis; K59.00 Constipation, unspecified; E56.9 Vitamin deficiency, unspecified; E55.9 Vitamin D deficiency, unspecified; F32.9 Major depressive disorder, single episode, unspecified; Z79.899 Other long term (current) drug therapy ==

== ENCOUNTER → 2025-06-15 | Outpatient (CLI) | payer MEDICARE | END | disposition home or self-care (01) | LOC: RESCLI 01:37 | PROVIDERS: ATTEND Internal Medicine | DX: E11.65 Type 2 diabetes mellitus with hyperglycemia (principal); M10.9 Gout, unspecified; E78.5 Hyperlipidemia, unspecified; I48.91 Unspecified atrial fibrillation; N95.2 Postmenopausal atrophic vaginitis; E78.1 Pure hyperglyceridemia; K92.89 Other specified diseases of the digestive system; D64.9 Anemia, unspecified; I10 Essential (primary) hypertension; E55.9 Vitamin D deficiency, unspecified; E05.90 Thyrotoxicosis, unspecified without thyrotoxic crisis or storm; J30.2 Other seasonal allergic rhinitis; F32.9 Major depressive disorder, single episode, unspecified; K59.00 Constipation, unspecified; E56.9 Vitamin deficiency, unspecified; F51.01 Primary insomnia; Z79.899 Other long term (current) drug therapy ==